=== PATIENT | male | born 1975 | race Caucasian/White ===

== ENCOUNTER 2016-08-03 08:47 | Day surgery (SDC) | payer OTHER ==
[2016-08-03] MEDS ORDERED: LIDOCAINE 1% 5 ML SDV ID PRN (09:08)
[2016-08-03] MEDS ORDERED: LR 1,000 ML IV ONE (09:08)
[2016-08-03] MEDS ORDERED: LIDOCAINE 1% 2 ML INJ ONE (09:14)
[2016-08-03] MEDS ORDERED: fentaNYL 100 MCG/2 ML INJ ONE (09:38)
[2016-08-03] MEDS ORDERED: PROPOFOL/EMULSION 500 MG/50 ML BOTTLE IV ONE (09:39)
--- NOTE | 2016-08-03 11:56 | GPN ---
[f rep st] PROCEDURE NOTE DATE OF PROCEDURE: 08/03/2016 PROCEDURE: Esophagogastroduodenoscopy with biopsy, endoscopic ultrasound. INDICATION: The patient is a 41-year-old male who presents for evaluation of idiopathic pancreatitis as well as increasing mid epigastric abdominal pain. He presents for further evaluation. CONSENT: Risks, benefits, and alternatives of the procedure were discussed in great detail with the patient. Risk of infection, bleeding, perforation, sedation, and pancreatitis were discussed. All questions were answered. Informed consent was obtained. MEDICATIONS: Propofol. Please see Anesthesiology record for details ESTIMATED BLOOD LOSS: Insignificant. ESOPHAGOGASTRODUODENOSCOPY EXAMINATION: The Olympus upper endoscope was introduced into the mouth and advanced to the esophagus. The proximal, mid, and distal esophagus were normal in appearance. The stomach was entered and closely examined, including retroflexed view of angularis, cardia and fundus. The patient was noted to have a small hiatal hernia. The mucosa in the antrum and body of the stomach was erythematous in a patchy distribution. Biopsies were taken. The duodenal bulb and second portion of the duodenum were normal in appearance. Biopsies taken to rule out celiac disease. ENDOSCOPIC ULTRASOUND EXAMINATION: The Olympus linear echoendoscope was inserted in the mouth to second portion of the duodenum. The pancreas was carefully examined from the uncinate process to the tail where the spleen was seen. The pancreatic duct was not dilated. No dilated side branches were noted. Hyperechoic foci were noted throughout the body. The common bile duct was seen. It measured approximately 4 mm without stone stricture or stenosis. A fluid collection was seen around the head of the pancreas. It measured approximately 3 cm. No obvious liver lesion was noted. The gallbladder had significant debris. No stones were noted. IMPRESSION: 1. Debris in the gallbladder. 2. Gastritis, status post biopsy. 3. Small hiatal hernia. 4. Fluid collection around the head of the pancreas. RECOMMENDATIONS: 1. Follow up in the office in 2 weeks. 2. Consider cholecystectomy. 3. Await biopsy results. /[id number]/MODL MTDD
== END 2016-08-03 11:25 | disposition home or self-care (01) ==
LOC: FSGY 08:47
PROVIDERS: ATTEND Internal Medicine Gastroenterology
PROC: 0DB98ZX Excision of Duodenum, Via Natural or Artificial Opening Endoscopic, Diagnostic (ICD-10-PCS; principal; 2016-08-03 10:15)
PROC: 0DB68ZX Excision of Stomach, Via Natural or Artificial Opening Endoscopic, Diagnostic (ICD-10-PCS; principal; 2016-08-03 10:15)
PROC: 0FJD8ZZ Inspection of Pancreatic Duct, Via Natural or Artificial Opening Endoscopic (ICD-10-PCS; principal; 2016-08-03 10:15)
DX: K44.9 Diaphragmatic hernia without obstruction or gangrene (principal); K29.50 Unspecified chronic gastritis without bleeding; K85.90 Acute pancreatitis without necrosis or infection, unspecified; F10.20 Alcohol dependence, uncomplicated; F41.8 Other specified anxiety disorders; I10 Essential (primary) hypertension; F17.210 Nicotine dependence, cigarettes, uncomplicated
CPT/HCPCS: J2704; J3010

== ENCOUNTER → 2016-11-21 | Outpatient (CLI) | payer OTHER | LOC: FIMAGING 17:59 | PROVIDERS: ATTEND Internal Medicine | DX: R10.9 Unspecified abdominal pain (principal); J18.9 Pneumonia, unspecified organism ==

== ENCOUNTER 2016-12-27 07:00 | Day surgery (SDC) | payer OTHER ==
--- NOTE | 2016-12-19 08:26 | GHP ---
[f rep st] PREOP HISTORY AND PHYSICAL DATE OF ADMISSION: 12/27/2016 HISTORY OF PRESENT ILLNESS: The patient is a 41-year-old male with a history of alcohol abuse, who is now sober in an outpatient program, who presents after 3 episodes of alcoholic pancreatitis requi [facility] hospitalization in March and April 2016 and June 2016. The most recent episode requi red an ICU stay. He has been sober since that last episode. He does still smoke cigarettes. He archuleta s no abdominal surgical history. EGD with EUS on 08/03/[address] 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 He has been referred here for laparoscopic cholecystectomy. PAST MEDICAL HISTORY: Includes alcoholism, anxiety, hypertension, tobacco dependence. PAST SURGICAL HISTORY: Denies. MEDICATIONS: Acamprosate, amlodipine, citalopram, gabapentin, potassium chloride, Protonix, topiram ate. ALLERGIES: No known drug allergies. SOCIAL HISTORY: History of alcohol abuse, now sober in outpatient program. Also tobacco use. REVIEW OF SYSTEMS: A 10-point review of systems negative aside from that in the HPI. PHYSICAL EXAMINATION: GENERAL: Reveals a 41-year-old male, alert and oriented x3, and in no acute distress. HEENT: Normocephalic, atraumatic. No pallor. [place] complexion. No jaundice. Mucous me mbranes moist. CHEST: Clear to auscultation bilaterally. CARDIAC: Regular rate and rhythm. ABDO MEN: Soft, nontender. No rebound, no guarding. Negative Pleitez sign. EXTREMITIES: Warm, well pe rfused without edema. SKIN: Warm and dry. PSYCH: Normal mood and affect. IMPRESSION: This is a 41-year-old male, now sober with 3 episodes of severe alcoholic pancreatitis. PLAN: Plan is to pursue laparoscopic cholecystectomy. Prior episodes of pancreatitis are consisten t with alcohol abuse. He is sober now and understands the importance of this for his health. He do es have sludge in his gallbladder, and it is reasonable to remove it given his history and desire to avoid further potentially more complicated episodes of pancreatitis. Risks and options have been d iscussed including but not limited to bleeding, infection, nerve injury; retained stones, bile leak, need for ERCP, open procedure, recurrent symptoms, and other problems, and he requests to proceed. The patient is seen by both Inez Phelps and Dr. Leandro Azar. /[id number]/MODL
[~2016-12-27 07:00] MED LIST: cefOXitin SODIUM 2 GM in D5W 100 ML IV ONE
--- NOTE | 2016-12-27 07:32 | PDHPUP ---
History & Physical Update H&P update statement: This history and physical update is based on an assessment of the patient which was completed after admission or registration (within 24 hours), but prior to the surgery/procedure. H&P update: H&P reviewed & patient examined, no change in patient's condition since H&P completed
[2016-12-27] MEDS ORDERED: BUPIVACAINE 0.5% 30 ML SDV ONE (08:33)
[2016-12-27] MEDS ORDERED: HEPARIN 1000 UNIT/1 ML MDV ONE (08:33)
--- NOTE | 2016-12-27 08:34 | PDANEPAE ---
ANE Past Medical History - Cardiovascular History Hx Hypertension: Yes Hx Arrhythmias: No Hx Chest Pain: No Hx Coronary Artery / Peripheral Vascular Disease: No Hx CHF / Valvular Disease: No Hx Palpitations: No Cardiovascular History Comment: pcp monitors bp meds - Pulmonary History Hx COPD: No Hx Asthma/Reactive Airway Disease: No Hx Recent Upper Respiratory Infection: No Hx Oxygen in Use at Home: No Hx Sleep Apnea: No Sleep Apnea Screening Result - Last Documented: Negative - Neurologic History Hx Cerebrovascular Accident: No Hx Seizures: No Hx Dementia: No - Endocrine History Hx Diabetes: No - Renal History Hx Renal Disorders: No - Liver History Hx Hepatic Disorders: Yes Hepatic History Comment: hx of pancreatitis - Neurological & Psychiatric Hx Hx Neurological and Psychiatric Disorders: No - Cancer History Hx Cancer: No - Congenital Disorder History Hx Congenital Disorders: No - GI History GERD: mild Hx Gastrointestinal Disorders: Yes Gastrointestinal History Comment: DIARRHEA. DECREASED APPETITE - Other Health History Other Health History: wears glasses - Chronic Pain History Chronic Pain: Yes (pancreatitis/ abd pain) - Surgical History Prior Surgeries: 08/03/16 EGD/ EUS with Raju. AUNDREA Howard X3 ANE Review of Systems - Exercise capacity Exercise capacity: >=4 METS METS (RN): 4 METS ANE Patient History - Allergies Allergies/Adverse Reactions: No Known Allergies Allergy (Verified 12/25/16 12:52) - Home Medications Home medications: home medication list seen and reviewed Home Medications: Amlodipine Besylate 08/01/16 [Last Taken 08/03/16 08:25] Citalopram 08/01/16 [Last Taken 08/03/16 08:25] Pantoprazole Sodium 08/01/16 [Last Taken 12/27/16 05:00] Herbals/Supplements -Info Only 12/25/16 [Last Taken 12/25/16] - NPO status NPO Status: no food or drink >8 hours NPO Since - Liquids (Date): 12/26/16 NPO Since - Liquids (Time): 14:00 NPO Since - Solids (Date): 12/27/16 NPO Since - Solids (Time): 05:00 - Anes Hx Anes Hx: no prior problems - Smoking Hx Smoking Status: Current every day smoker - Alcohol Use Alcohol Use: Sober - Family Anes Hx Family Anes Hx: none Family Hx Anesthesia Complications: none ANE Labs/Vital Signs - Vital Signs Blood Pressure: 142/97 Heart Rate: 72 Respiratory Rate: 16 O2 Sat (%): 95 Height: 177.8 cm Weight: 96.615 kg ANE Physical Exam - Airway Neck exam: FROM Mallampati Score: Class 3 Mouth exam: normal dental/mouth exam - Pulmonary Pulmonary: no respiratory distress - Cardiovascular Cardiovascular: regular rate and rhythym - ASA Status ASA Status: II
[2016-12-27] MEDS ORDERED: ceFAZolin 1 GM/5 ML SYR ONE (08:37)
[2016-12-27] MEDS ORDERED: PROPOFOL 200 MG/20 ML VIAL ONE (08:39)
[2016-12-27] MEDS ORDERED: fentaNYL 100 MCG/2 ML INJ ONE ×5 (08:39→10:59)
[2016-12-27] MEDS ORDERED: ROCURONIUM 50 MG/5 ML VIAL ONE ×2 (08:43→09:13)
[2016-12-27] MEDS ORDERED: LIDOCAINE 2% 5 ML SDV ONE (08:43)
[2016-12-27] MEDS ORDERED: OXYCODONE/APAP 5/325 TAB PO PRN (09:19)
[2016-12-27] MEDS ORDERED: LR 500 ML IV PRN (09:19)
[2016-12-27] MEDS ORDERED: ONDANSETRON 4 MG/2 ML VIAL IVP PRN (09:19)
[2016-12-27] MEDS ORDERED: NALOXONE HCL 0.4 MG/ML INJ IVP PRN (09:19)
[2016-12-27] MEDS ORDERED: SUGAMMADEX SODIUM 200 MG/2 ML VIAL IVP ONE (09:27)
[2016-12-27] MEDS ORDERED: ONDANSETRON 4 MG/2 ML VIAL ONE (09:27)
--- NOTE | 2016-12-27 10:10 | POSTOPPROG ---
Post Op Note Date of Operation: 12/27/16 Surgeon: Leandro Azar Cutting Inspector: Mandy Avila Anesthesiologist: Eliseo Anesthesia: GET(General Endotracheal) Pre-op Diagnosis: Cholelisthesis Post-op Diagnosis: Same Indication: RUQ pain, recurrent pancreatitis Procedure: Laproscopic cholecystectomy, liver biopsy Inf/Abcess present in the surg proc area at time of surgery?: No Depth: Organ Space EBL: Minimal Specimen(s): gallbladder Liver biopsy
[2016-12-27] MEDS: fentaNYL 100 MCG/2 ML INJ IVP PRN ×4 (10:31→11:05)
[2016-12-27] MEDS: HYDROmorphONE/DILAUDID 1 MG/ML SYR IVP PRN ×3 (10:49→11:09)
[2016-12-27] MEDS ORDERED: HYDROmorphONE/DILAUDID 1 MG/ML SYR ONE ×2 (10:49→11:07)
[2016-12-27] MEDS ORDERED: OXYCODONE/APAP 5/325 TAB ONE (11:30)
--- NOTE | 2016-12-27 11:34 | POSTANESTH ---
Post Anesthetic Evaluation Respiratory Status: Normal, Stable Level of Consciousness/Mental Status: Can Participate in Eval Pain Control: Adequate, Prn Tx Ordered Nausea/Vomiting Control: Adequate, Prn Tx Ordered Complications Possibly Related to Anesthesia: None Noted
[2016-12-27 11:45] VITALS: TEMP 97.9
[2016-12-27 11:54] VITALS: BP 145/86; PULSE 99; RESP 13; O2SAT 92
--- NOTE | 2017-01-01 07:01 | GOP ---
[f rep st] OPERATIVE REPORT DATE OF OPERATION: SURGEON: Leandro Azar MD APPLICATION ADMINISTRATOR: Mandy Avila PA-C ANESTHESIA: General endotracheal anesthesia. PREOPERATIVE DIAGNOSIS: Recurrent pancreatitis. POSTOPERATIVE DIAGNOSIS: Recurrent pancreatitis. PROCEDURE PERFORMED: 1. Laparoscopic cholecystectomy. 2. Wedge liver biopsy. FINDINGS: Patient was found to have a mildly inflamed gallbladder with adhesions to the gallbladder . He also had a fatty liver. ESTIMATED BLOOD LOSS: Negligible. DESCRIPTION OF PROCEDURE: Patient was taken to the operating room, where he received satisfactory g eneral endotracheal anesthesia. He was placed in supine position, prepped and draped in usual steri le fashion. Infraumbilical incision was made, Veress needle was inserted, pneumoperitoneum was esta blished. Trocar was introduced. Laparoscope was introduced. Good visualization was obtained. Thr ee other trocars were placed in the upper abdomen under direct vision. The gallbladder was elevated up, adhesions were taken down until the entire gallbladder could be exposed. Cystic duct and cysti c artery were dissected free. They were both multiply hemoclipped and divided. A good clear view h ad been obtained. They were divided with care to avoid injury to the common bile duct. Peritoneum of the gallbladder was incised and the gallbladder was dissected free from the bed and hepatic fossa , and extracted through the upper midline port site. Hemostasis was obtained. Attention was turned to the liver. A wedge biopsy was taken of the right lobe of the liver. Hemostasis was obtained wi th electrocautery. A specimen was removed and sent to Pathology. Trocars were removed under direct vision. Trocar sites were closed with 0 Vicryl for the fascia, 4-0 Monocryl subcuticular stitch fo r the skin. All layers were infiltrated with 0.5% Marcaine. Blood loss was negligible. He was david en to the recovery room in good condition. /[id number]/MODL
== END 2016-12-27 12:11 | disposition home or self-care (01) ==
LOC: FSGY 07:00
PROVIDERS: ATTEND Surgery
PROC: 0FB14ZX Excision of Right Lobe Liver, Percutaneous Endoscopic Approach, Diagnostic (ICD-10-PCS; principal; 2016-12-27 08:30)
PROC: 0FT44ZZ Resection of Gallbladder, Percutaneous Endoscopic Approach (ICD-10-PCS; principal; 2016-12-27 08:30)
DX: K86.1 Other chronic pancreatitis (principal); K80.20 Calculus of gallbladder without cholecystitis without obstruction; R10.11 Right upper quadrant pain; K76.0 Fatty (change of) liver, not elsewhere classified; F10.21 Alcohol dependence, in remission; I10 Essential (primary) hypertension; F17.200 Nicotine dependence, unspecified, uncomplicated
CPT/HCPCS: J0694; J1170; J2405; J2704; J3010

== ENCOUNTER → 2017-01-31 | Outpatient (CLI) | payer OTHER | LOC: CIMAGING 13:27 | PROVIDERS: ATTEND Internal Medicine | DX: R07.9 Chest pain, unspecified (principal); R10.9 Unspecified abdominal pain; R93.8 Abnormal findings on diagnostic imaging of other specified body structures | CPT/HCPCS: 71020-PO ==

== ENCOUNTER 2017-03-24 08:32 | Inpatient (IN) | payer OTHER ==
--- NOTE | 2017-03-24 08:48 | EDPHY ---
General Narrative: CHIEF COMPLAINT: Chest pain HISTORY OF PRESENT ILLNESS: Patient complains of chest pain that started Saturday night. This was mild-to- moderate at 1st now moderate to severe. It is primarily left-sided. It is described as unbearable. Unable to characterize it otherwise. It does come and go but never fully resolved. It has been there for nearly a day at this time. Some shortness of breath. Some tingling of the hands started this morning. Pain does radiate into the arms. Minimal epigastric pain. Some nausea and vomiting this morning. No trauma or injury. No neck pain. No headache. No other associated complaints or modifying factors. REVIEW OF SYSTEMS: Ten systems reviewed and are negative unless otherwise noted in the HPI PCP: Dr. Carter SPECIALISTS: None PAST MEDICAL HISTORY: Hypertension, pancreatitis, depression, anxiety, alcohol dependence PAST SURGICAL HISTORY: Cholecystectomy SOCIAL HISTORY: Smoker. Every other day alcohol intake. No illicit substance use. Works at a [employer] in [place] FAMILY HISTORY: Noncontributory EXAMINATION General Appearance: Alert, no distress Head: normocephalic, atraumatic Eyes: Pupils equal and round, no conjunctival pallor or injection ENT, Mouth: Mucous membranes moist. Airway patent Neck: Normal inspection, supple, non-tender Respiratory: Lungs are clear to auscultation. No wheezing, rhonchi or crackles Cardiovascular: Tachycardic rate. Regular rhythm. No murmur. Pulses intact distally Gastrointestinal: Abdomen is soft and nondistended. Mild tenderness in the epigastrium. No guarding. No tympany. No rigidity. Neurological: GCS 15. A&O, nonfocal, normal gait Skin: Warm and dry, no rash. No petechiae purpura. Extremities: Nontender, no pedal edema Psychiatric: Mood and affect normal DIFFERENTIAL DIAGNOSES: Including but not limited to ACS, anxiety, pneumonia, PE, pleurisy, pericarditis MDM: 8:50 a.m. Chest pain that started on Saturday. This has been mostly constant with occasional wax and wane of severity. Does have some shortness of breath. Some tingling of the hands. He has no neck pain. No trauma or injury to the head or neck. Neuro exam is normal. EKG is sinus tachycardia without ischemia. Laboratory studies and chest x-ray pending. No previous cardiac workup. 9:40 a.m. D-dimer is elevated, thus I have ordered CT angio of the chest rule out PE. Glucose is slightly elevated. His lipase is also slightly elevated. He does admit to alcohol intake last night and this morning. I have re-evaluated and informed him of this. He is in no acute distress with mild tachycardia. ASA and IV fluid ordered as well. 10:30 a.m. Notified by radiologist Dr. Rhodes. CT scan reveals no PE. There is question of some abnormality of the left anterior descending artery. There is also some question of abnormality on the abdomen portion of the scan as documented. Recommend further imaging of the abdomen. I will discuss with client care consultant regarding the possible LAD lesion. I will discuss with the hospitalist as well for admission. 11:08 a.m. Case discussed with client care consultant Dr. Martin. He will provide consultation. We discussed the patient's history, physical exam, EKG and CT findings. Proceed with admission to the hospitalist. We will page them again. 11:25 a.m. Patient has been evaluated by client care consultant. Ripley to be related to pancreatitis and noncardiac in nature. Please see his note for further details. 11:30 a.m. Case discussed with hospitalist. The patient be admitted to Dr. Ulloa. He is admitted in stable condition for pancreatitis and further cardiac workup. Abdominal exam remains benign with some epigastric tenderness. EKG interpretation: Dr. Kush Gan Sinus tachycardia. No acute ischemia - Diagnostics Imaging Results: Imaging Impressions Chest X-Ray 03/24/17 08:51 Impression: Possible left ventricular hypertrophy. Otherwise negative. Is this patient hypertensive? Chest/Thorax CTA 03/24/17 09:38 Impression: 1. No pulmonary embolic disease. 2. Suspicious for LAD coronary artery disease. 3. Abnormal masses/adenopathy in the upper abdomen, incompletely evaluated. Recommend dedicated CT with IV contrast of the abdomen and pelvis. Is there any known history of malignancy? Results called and discussed with Benson Ruiz, at 03/24/2017 10:27 General information for patients regarding this examination can be found at [email or web address]. If you have questions or comments about this report, please contact me at (hospital) or [phone] (cell). - History Smoking Status: Current every day smoker - Objective Vital Signs: Initial Vital Signs Temperature (C) 98.6 F 03/24/17 08:36 Heart Rate 104 H 03/24/17 08:36 Respiratory Rate 18 03/24/17 08:36 Blood Pressure 154/98 H 03/24/17 08:36 O2 Sat (%) 95 03/24/17 08:36 O2 Delivery Mode Room Air Allergies/Adverse Reactions: No Known Allergies Allergy (Verified 12/25/16 12:52) Home Medications: Medication Instructions Recorded Citalopram Hydrobromide [Celexa] 40 mg PO DAILY #0 08/01/16 Pantoprazole Sodium [Protonix 40mg 40 mg PO DAILY #0 08/01/16 (*)] amLODIPine BESYLATE [Norvasc 5 mg 5 mg PO DAILY #0 08/01/16 (*)] Multivitamins [Multivitamin (*)] 1 each PO DAILY 03/24/17 Laboratory Results: Laboratory Results 03/24/17 08:55 03/24/17 08:55 03/24/17 03/24/17 03/24/17 08:55 08:55 08:55 WBC RBC Hgb Hct MCV MCH MCHC RDW Plt Count MPV Neut % (Auto) Lymph % (Auto) [place] % (Auto) Eos % (Auto) Baso % (Auto) Nucleat RBC Rel Count Absolute Neuts (auto) Absolute Lymphs (auto) Absolute Monos (auto) Absolute Eos (auto) Absolute Basos (auto) Absolute Nucleated RBC Immature Gran % Immature Gran # PT 14.4 SEC SEC (12.0-15.0) INR 1.13 (0.83-1.16) APTT 25.8 SEC SEC (23.0-38.0) D-Dimer 2.83 ug/mLFEU H ug/mLFEU (0.00-0.50) Sodium 135 mEq/L mEq/L (134-144) Potassium 4.3 mEq/L mEq/L (3.5-5.2) Chloride 97 mEq/L mEq/L (97-110) Carbon Dioxide 18 mEq/l L mEq/l (22-31) Anion Gap 20 mEq/L H mEq/L (8-16) BUN 9 mg/dL mg/dL (7-23) Creatinine 0.7 mg/dL mg/dL (0.7-1.3) Estimated GFR > 60 Glucose 296 mg/dL H mg/dL (70-100) Calcium 8.8 mg/dL mg/dL (8.5-10.4) Troponin I < 0.012 ng/mL ng/mL (0.000-0.034) NT-Pro-B Natriuret Pep < 11 pg/mL pg/mL (0-125) Lipase 359 IU/L H IU/L (23-300) Ethyl Alcohol 60 mg/dL H mg/dL (0-10) 03/24/17 08:55 WBC 10.59 10^3/uL H 10^3/uL (3.80-9.50) RBC 4.97 10^6/uL 10^6/uL (4.40-6.38) Hgb 13.9 g/dL g/dL (13.7-17.5) Hct 41.9 % % (40.0-51.0) MCV 84.3 fL fL (81.5-99.8) MCH 28.0 pg pg (27.9-34.1) MCHC 33.2 g/dL g/dL (32.4-36.7) RDW 15.4 % H % (11.5-15.2) Plt Count 226 10^3/uL 10^3/uL (150-400) MPV 9.9 fL fL (8.7-11.7) Neut % (Auto) 73.9 % % (39.3-74.2) Lymph % (Auto) 16.3 % % (15.0-45.0) [place] % (Auto) 7.7 % % (4.5-13.0) Eos % (Auto) 1.1 % % (0.6-7.6) Baso % (Auto) 0.6 % % (0.3-1.7) Nucleat RBC Rel Count 0.0 % % (0.0-0.2) Absolute Neuts (auto) 7.82 10^3/uL H 10^3/uL (1.70-6.50) Absolute Lymphs (auto) 1.73 10^3/uL 10^3/uL (1.00-3.00) Absolute Monos (auto) 0.82 10^3/uL H 10^3/uL (0.30-0.80) Absolute Eos (auto) 0.12 10^3/uL 10^3/uL (0.03-0.40) Absolute Basos (auto) 0.06 10^3/uL 10^3/uL (0.02-0.10) Absolute Nucleated RBC 0.00 10^3/uL 10^3/uL (0-0.01) Immature Gran % 0.4 % % (0.0-1.1) Immature Gran # 0.04 10^3/uL 10^3/uL (0.00-0.10) PT INR APTT D-Dimer Sodium Potassium Chloride Carbon Dioxide Anion Gap BUN Creatinine Estimated GFR Glucose Calcium Troponin I NT-Pro-B Natriuret Pep Lipase Ethyl Alcohol Medications Given: Hydromorphone/Sodium Chloride (Hydromorphone) 0.2 - 0.4 mg IVP Q2HRS PRN PRN Reason: Pain, Severe Unable to Take PO Stop: 04/03/17 13:30 Last Admin: 03/24/17 16:24 Dose: 0.4 mg Sodium Chloride (Ns) 1,000 mls @ 125 mls/hr IV CONT ABIEL Stop: 09/20/17 13:29 Last Admin: 03/24/17 14:17 Dose: 1,000 mls Discontinued Medications Aspirin (Aspirin) 324 mg PO EDNOW ONE Stop: 03/24/17 09:42 Last Admin: 03/24/17 10:13 Dose: 324 mg Sodium Chloride (Ns) 1,000 mls @ 0 mls/hr IV EDNOW ONE; Wide Open PRN Reason: Protocol Stop: 03/24/17 09:40 Last Admin: 03/24/17 10:13 Dose: 1,000 mls Departure - Departure Disposition: [facility] Inpatient Acute Clinical Impression: Acute chest pain Pancreatitis Qualifiers: Chronicity: acute Pancreatitis type: alcohol induced Acute pancreatitis complication: unspecified Qualified Code(s): K85.20 - Alcohol induced acute pancreatitis without necrosis or infection Condition: Good
--- NOTE | 2017-03-24 08:48 | EDPHY ---
General Narrative: CHIEF COMPLAINT: Chest pain HISTORY OF PRESENT ILLNESS: Patient complains of chest pain that started Saturday night. This was mild-to- moderate at 1st now moderate to severe. It is primarily left-sided. It is described as unbearable. Unable to characterize it otherwise. It does come and go but never fully resolved. It has been there for nearly a day at this time. Some shortness of breath. Some tingling of the hands started this morning. Pain does radiate into the arms. Minimal epigastric pain. Some nausea and vomiting this morning. No trauma or injury. No neck pain. No headache. No other associated complaints or modifying factors. REVIEW OF SYSTEMS: Ten systems reviewed and are negative unless otherwise noted in the HPI PCP: Dr. Carter SPECIALISTS: None PAST MEDICAL HISTORY: Hypertension, pancreatitis, depression, anxiety, alcohol dependence PAST SURGICAL HISTORY: Cholecystectomy SOCIAL HISTORY: Smoker. Every other day alcohol intake. No illicit substance use. Works at a [employer] in [place] FAMILY HISTORY: Noncontributory EXAMINATION General Appearance: Alert, no distress Head: normocephalic, atraumatic Eyes: Pupils equal and round, no conjunctival pallor or injection ENT, Mouth: Mucous membranes moist. Airway patent Neck: Normal inspection, supple, non-tender Respiratory: Lungs are clear to auscultation. No wheezing, rhonchi or crackles Cardiovascular: Tachycardic rate. Regular rhythm. No murmur. Pulses intact distally Gastrointestinal: Abdomen is soft and nondistended. Mild tenderness in the epigastrium. No guarding. No tympany. No rigidity. Neurological: GCS 15. A&O, nonfocal, normal gait Skin: Warm and dry, no rash. No petechiae purpura. Extremities: Nontender, no pedal edema Psychiatric: Mood and affect normal DIFFERENTIAL DIAGNOSES: Including but not limited to ACS, anxiety, pneumonia, PE, pleurisy, pericarditis MDM: 8:50 a.m. Chest pain that started on Saturday. This has been mostly constant with occasional wax and wane of severity. Does have some shortness of breath. Some tingling of the hands. He has no neck pain. No trauma or injury to the head or neck. Neuro exam is normal. EKG is sinus tachycardia without ischemia. Laboratory studies and chest x-ray pending. No previous cardiac workup. 9:40 a.m. D-dimer is elevated, thus I have ordered CT angio of the chest rule out PE. Glucose is slightly elevated. His lipase is also slightly elevated. He does admit to alcohol intake last night and this morning. I have re-evaluated and informed him of this. He is in no acute distress with mild tachycardia. ASA and IV fluid ordered as well. 10:30 a.m. Notified by radiologist Dr. Rhodes. CT scan reveals no PE. There is question of some abnormality of the left anterior descending artery. There is also some question of abnormality on the abdomen portion of the scan as documented. Recommend further imaging of the abdomen. I will discuss with supervisor aluminum fabrication regarding the possible LAD lesion. I will discuss with the hospitalist as well for admission. 11:08 a.m. Case discussed with supervisor aluminum fabrication Dr. Martin. He will provide consultation. We discussed the patient's history, physical exam, EKG and CT findings. Proceed with admission to the hospitalist. We will page them again. 11:25 a.m. Patient has been evaluated by supervisor aluminum fabrication. [place] to be related to pancreatitis and noncardiac in nature. Please see his note for further details. 11:30 a.m. Case discussed with hospitalist. The patient be admitted to Dr. Ulloa. He is admitted in stable condition for pancreatitis and further cardiac workup. Abdominal exam remains benign with some epigastric tenderness. EKG interpretation: Dr. Kush Gan Sinus tachycardia. No acute ischemia - Diagnostics Imaging Results: Imaging Impressions Chest X-Ray 03/24/17 08:51 Impression: Possible left ventricular hypertrophy. Otherwise negative. Is this patient hypertensive? Chest/Thorax CTA 03/24/17 09:38 Impression: 1. No pulmonary embolic disease. 2. Suspicious for LAD coronary artery disease. 3. Abnormal masses/adenopathy in the upper abdomen, incompletely evaluated. Recommend dedicated CT with IV contrast of the abdomen and pelvis. Is there any known history of malignancy? Results called and discussed with Benson Ruiz, at 03/24/2017 10:27 General information for patients regarding this examination can be found at [email or web address]. If you have questions or comments about this report, please contact me at [phone] (hospital) or [phone] (cell). - History Smoking Status: Current every day smoker - Objective Vital Signs: Initial Vital Signs Temperature (C) 98.6 F 03/24/17 08:36 Heart Rate 104 H 03/24/17 08:36 Respiratory Rate 18 03/24/17 08:36 Blood Pressure 154/98 H 03/24/17 08:36 O2 Sat (%) 95 03/24/17 08:36 O2 Delivery Mode Room Air Allergies/Adverse Reactions: No Known Allergies Allergy (Verified 12/25/16 12:52) Home Medications: Medication Instructions Recorded Citalopram Hydrobromide [Celexa] 40 mg PO DAILY #0 08/01/16 Pantoprazole Sodium [Protonix 40mg 40 mg PO DAILY #0 08/01/16 (*)] amLODIPine BESYLATE [Norvasc 5 mg 5 mg PO DAILY #0 08/01/16 (*)] Multivitamins [Multivitamin (*)] 1 each PO DAILY 03/24/17 Laboratory Results: Laboratory Results 03/24/17 08:55 03/24/17 08:55 03/24/17 03/24/17 03/24/17 08:55 08:55 08:55 WBC RBC Hgb Hct MCV MCH MCHC RDW Plt Count MPV Neut % (Auto) Lymph % (Auto) Long % (Auto) Eos % (Auto) Baso % (Auto) Nucleat RBC Rel Count Absolute Neuts (auto) Absolute Lymphs (auto) Absolute Monos (auto) Absolute Eos (auto) Absolute Basos (auto) Absolute Nucleated RBC Immature Gran % Immature Gran # PT 14.4 SEC SEC (12.0-15.0) INR 1.13 (0.83-1.16) APTT 25.8 SEC SEC (23.0-38.0) D-Dimer 2.83 ug/mLFEU H ug/mLFEU (0.00-0.50) Sodium 135 mEq/L mEq/L (134-144) Potassium 4.3 mEq/L mEq/L (3.5-5.2) Chloride 97 mEq/L mEq/L (97-110) Carbon Dioxide 18 mEq/l L mEq/l (22-31) Anion Gap 20 mEq/L H mEq/L (8-16) BUN 9 mg/dL mg/dL (7-23) Creatinine 0.7 mg/dL mg/dL (0.7-1.3) Estimated GFR > 60 Glucose 296 mg/dL H mg/dL (70-100) Calcium 8.8 mg/dL mg/dL (8.5-10.4) Troponin I < 0.012 ng/mL ng/mL (0.000-0.034) NT-Pro-B Natriuret Pep < 11 pg/mL pg/mL (0-125) Lipase 359 IU/L H IU/L (23-300) Ethyl Alcohol 60 mg/dL H mg/dL (0-10) 03/24/17 08:55 WBC 10.59 10^3/uL H 10^3/uL (3.80-9.50) RBC 4.97 10^6/uL 10^6/uL (4.40-6.38) Hgb 13.9 g/dL g/dL (13.7-17.5) Hct 41.9 % % (40.0-51.0) MCV 84.3 fL fL (81.5-99.8) MCH 28.0 pg pg (27.9-34.1) MCHC 33.2 g/dL g/dL (32.4-36.7) RDW 15.4 % H % (11.5-15.2) Plt Count 226 10^3/uL 10^3/uL (150-400) MPV 9.9 fL fL (8.7-11.7) Neut % (Auto) 73.9 % % (39.3-74.2) Lymph % (Auto) 16.3 % % (15.0-45.0) Long % (Auto) 7.7 % % (4.5-13.0) Eos % (Auto) 1.1 % % (0.6-7.6) Baso % (Auto) 0.6 % % (0.3-1.7) Nucleat RBC Rel Count 0.0 % % (0.0-0.2) Absolute Neuts (auto) 7.82 10^3/uL H 10^3/uL (1.70-6.50) Absolute Lymphs (auto) 1.73 10^3/uL 10^3/uL (1.00-3.00) Absolute Monos (auto) 0.82 10^3/uL H 10^3/uL (0.30-0.80) Absolute Eos (auto) 0.12 10^3/uL 10^3/uL (0.03-0.40) Absolute Basos (auto) 0.06 10^3/uL 10^3/uL (0.02-0.10) Absolute Nucleated RBC 0.00 10^3/uL 10^3/uL (0-0.01) Immature Gran % 0.4 % % (0.0-1.1) Immature Gran # 0.04 10^3/uL 10^3/uL (0.00-0.10) PT INR APTT D-Dimer Sodium Potassium Chloride Carbon Dioxide Anion Gap BUN Creatinine Estimated GFR Glucose Calcium Troponin I NT-Pro-B Natriuret Pep Lipase Ethyl Alcohol Medications Given: Hydromorphone/Sodium Chloride (Hydromorphone) 0.2 - 0.4 mg IVP Q2HRS PRN PRN Reason: Pain, Severe Unable to Take PO Stop: 04/03/17 13:30 Last Admin: 03/24/17 16:24 Dose: 0.4 mg Sodium Chloride (Ns) 1,000 mls @ 125 mls/hr IV CONT ABIEL Stop: 09/20/17 13:29 Last Admin: 03/24/17 14:17 Dose: 1,000 mls Discontinued Medications Aspirin (Aspirin) 324 mg PO EDNOW ONE Stop: 03/24/17 09:42 Last Admin: 03/24/17 10:13 Dose: 324 mg Sodium Chloride (Ns) 1,000 mls @ 0 mls/hr IV EDNOW ONE; Wide Open PRN Reason: Protocol Stop: 03/24/17 09:40 Last Admin: 03/24/17 10:13 Dose: 1,000 mls Departure - Departure Disposition: [facility] Inpatient Acute Clinical Impression: Acute chest pain Pancreatitis Qualifiers: Chronicity: acute Pancreatitis type: alcohol induced Acute pancreatitis complication: unspecified Qualified Code(s): K85.20 - Alcohol induced acute pancreatitis without necrosis or infection Condition: Good
--- NOTE | 2017-03-24 08:48 | CPEKG ---
Heart Rate: 100 RR Interval: 600 P-R Interval: 168 QRSD Interval: 86 QT Interval: 344 QTC Interval: 444 P [place]: 53 QRS [place]: -22 T Wave [place]: 50 EKG Severity - OTHERWISE NORMAL ECG - EKG Impression: SINUS TACHYCARDIA EKG Impression: BORDERLINE LEFT AXIS DEVIATION Electronically Signed By: Josue Cosme 01-Apr-2017 12:37:00
[2017-03-24 09:07] LABS: PLATELET COUNT 226 10^3/uL (150-400)
[2017-03-24 09:21] LABS: INR 1.13 (0.83-1.16); PROTIME(PATIENT) 14.4 SEC (12.0-15.0)
[2017-03-24] MEDS ORDERED: NS 1,000 ML IV ONE (09:39)
[2017-03-24] MEDS ORDERED: ASPIRIN 81 MG CHEWABLE TAB PO ONE (09:41)
[2017-03-24] MEDS ORDERED: IOPAMIDOL (ISOVUE 370) 100 ML BTL IV ONE (09:43)
--- NOTE | 2017-03-24 12:15 | GCON ---
[f rep st] CONSULTATION CARDIOLOGY CONSULTATION DATE OF CONSULTATION: 03/24/2017 INDICATION: Chest/abdominal discomfort. REQUESTING PHYSICIAN: Benson Ruiz PA-C. HISTORY OF PRESENT ILLNESS: The patient is 41 years old. He has no known cardiovascular disease. H is major medical condition includes ongoing and active alcoholism. As a result of this, he has had 3 previous episodes of alcoholic pancreatitis. He has been hospitalized in March of 2016, April of 2016 and June of 2016. Most recently, he has required intensive care unit treatment because of his pancreatitis. In November, he underwent a laparoscopic cholecystectomy. He typically will drink anywhere from 6-8 beers a day and up to a pint of Schnapps a day. This has b een his typical habit recently. Over the last 3 days, he has been complaining of epigastric and left upper quadrant pain. There are an occasional association retro xiphoidal and low chest discomfort. The pain is respirophasic in intensity. He has had a little bit of diarrhea with this. He notes no shortness of breath with this. Because of this discomfort, he came to the emergency department toviki y. His initial electrocardiogram demonstrates sinus rhythm at 100 beats per minute. He has no signi ficant ST or T changes. His initial troponin is noted to be normal at less than 0.012. He is having active chest discomfort. His pain has been present for 3 days. PAST MEDICAL HISTORY: 1. Alcoholism as noted above. 2. History of pancreatitis. 3. History of cholecystectomy. 4. Hypertension. 5. Ongoing tobacco abuse. PAST SURGICAL HISTORY: Cholecystectomy. MEDICATIONS: As an outpatient. These are detailed in chart and not repeated here. ALLERGIES: None. SOCIAL HISTORY: He does smoke and abuse alcohol. He notes that he does not do any drugs. He is rel atively sedentary. REVIEW OF SYSTEMS: A full 10 point review of systems was performed, is otherwise negative. PHYSICAL EXAMINATION: VITAL SIGNS: Blood pressure 154/98 with a mean of 116, heart rate of 104, res piratory rate 18, sats 95% on room air. He is afebrile. GENERAL: Healthy white male, in no acute d istress. HEENT: Normocephalic, atraumatic. He has mild scleral icterus. Oropharynx unremarkable. Carotids are 2+ bilaterally. RESPIRATORY: Clear lung bangura bilaterally. Uses no accessory muscle s. Speaks in full sentences. CARDIAC: Precordial inspection unremarkable. PMI is nondisplaced. O n auscultation, has a regular rate and rhythm without murmurs, gallops, or rubs. ABDOMEN: Soft. He has diffuse tenderness in the epigastric region and left upper quadrant region. There is a slight c omponent of rebound. He has normal bowel sounds. No masses are noted. EXTREMITIES: Well perfused. VASCULAR: He has 2+ radial, dorsal pedal, and posterior tibial pulses. DATABASE: His ECG demonstrates normal sinus rhythm. Sodium 135, potassium 4.3, BUN 9, creatinine 0. 7, glucose 296. Troponin less than 0.012. ProBNP less than 11. Lipase 359. Anion gap is 20. INR is 1.13. D-dimer 2.83. White blood cell count elevated at 10.59, hematocrit 41.9, platelet count 22 6,000. Chest and thorax CTA were negative for PE. There is adenopathy noted in the upper abdomen. Comment was made that there is a suspicion for LAD territory coronary disease. IMPRESSION: The patient is 41 years old. He has an extensive alcohol abuse history as defined above with active alcohol use. He additionally has a history of pancreatitis. He has had pancreatitis on 3 occasions, 1 requiring ICU admission. He presents now with epigastric, left upper quadrant discom fort associated with elevated lipase. His glucose is likewise elevated and he has an increased anion gap. His ECG is unremarkable. Troponins negative. At this point, I think that his discomfort is n ot likely related to an underlying cardiovascular process. I think he very likely has recurrent panc reatitis. This was discussed with the emergency department staff. I do not think he requires any fu rther cardiovascular testing in the acute setting. Comment was made from the CT scan that he may hav e left anterior descending territory coronary disease. This can be addressed as an outpatient with a dedicated coronary CTA or possibly a stress echocardiogram. /[id number]/MODL
[2017-03-24] MEDS ORDERED: LORazepam 2 MG/ML INJ IVP PRN (13:24)
[2017-03-24] MEDS ORDERED: chlordiazePOXIDE 25 MG CAP PO PRN (13:24)
[2017-03-24] MEDS ORDERED: HYDROmorphONE/DILAUDID 1 MG/ML INJ IVP PRN (13:27)
[2017-03-24] MEDS ORDERED: PROMETHAZINE HCL 25 MG/ML INJ IVP PRN (13:27)
[2017-03-24] MEDS ORDERED: ONDANSETRON 4 MG/2 ML VIAL IVP PRN (13:27)
[2017-03-24] MEDS: HYDROmorphone HCL/NS/PF 0.4 MG/2 ML SYR IVP PRN ×5 (14:16→23:23)
[2017-03-24] MEDS: NS 1,000 ML IV SCH ×2 (14:17→23:23)
--- NOTE | 2017-03-24 15:01 | GHP ---
[f rep st] HISTORY AND PHYSICAL DATE OF ADMISSION: 03/24/2017 CHIEF COMPLAINT: Abdominal pain. HISTORY: The patient is a 41-year-old male alcoholic, with a history of recurrent alcoholic pancreat itis. Now, presenting with epigastric and left upper quadrant pain. This is similar to his previous pancreatitis pains, however, much more to the left than they have been in the past. He is very unco mfortable, writhing in pain, with currently 10 out of 10 pain that is constant. It does not really r adiate to his back. His last alcoholic beverage was at 7 o'clock this morning. He has had nausea, v omiting, and diarrhea. He denies any recent weight loss. He is feeling short of breath. He feels b oth his hands are tingling, which he has never experienced before, and it scared him. Onset of pain was 2 days ago. PAST MEDICAL HISTORY: 1. Recurrent alcoholic pancreatitis. 2. Hypertension. 3. Fatty liver. PAST SURGICAL HISTORY: Cholecystectomy. MEDICATIONS: Please see the computer record for the full detailed list. ALLERGIES: No known drug allergies. SOCIAL HISTORY: He is a smoker. He drinks 6 to 8 beers per day plus a pint of schnapps. He lives w ith a roommate. 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 REVIEW OF SYSTEMS: Complete review of systems obtained. Review of systems negative for constitution al, HEENT, GI, pulmonary, cardiovascular, , hematology, skin, muscular, endocrine, psych, except fo r positives and negative as in the HPI. FAMILY HISTORY: Reviewed, noncontributory to the presenting complaint. PHYSICAL EXAMINATION: GENERAL: Well-developed, well-nourished male, in no acute distress. VITAL SI GNS: Temperature 37.3, pulse 108, blood pressure 138/97, satting 96% on room air. EYES: Normal con junctivae. Pupils react to light. ENT: Normal ears and nose. Hearing intact. Normal teeth. Orop harynx moist. NECK: Trachea midline. No thyromegaly. CHEST: Normal effort. LUNGS: Clear to aus cultation bilaterally. CARDIOVASCULAR: Regular rhythm. No murmur. No extremity edema. ABDOMEN: Soft. Positive tenderness, epigastric. No hepatosplenomegaly. SKIN: Warm, dry, intact. No rash. MUSCULOSKELETAL: No cyanosis or clubbing. Strength 5/5, upper and lower extremities. NEURO: Cran ial nerves intact. Normal sensation, light touch. PSYCH: Alert and oriented x3. Normal affect. N ormal judgment. Normal memory. LABORATORY DATA: White count 10.59, hematocrit 41.9, platelets 226. Sodium 135, potassium 4.3, chlo ride 97, bicarb 18, BUN 9, creatinine 0.7, glucose 296. BNP is less than 11. Troponins negative. L ipase is 359. D-dimer is 2.83. Alcohol level is 60. DATA: EKG reviewed by me. My personal interpretation was normal sinus rhythm. No ST-T wave changes . CT angiogram of the chest is negative for pulmonary embolus. He does have coronary artery disease evident in his LAD. He has an upper abdominal mass. ASSESSMENT AND PLAN: 1. Upper abdominal mass. The patient needs a dedicated CT scan of the abdomen and pelvis, which I w ill arrange. 2. Questionable alcoholic pancreatitis. His lipase is really only minimally elevated at this time. However, given his history of recurrent pancreatitis episodes in the past, he very well may have a b urned out pancreas and inability to really mount much of a lipase response. He is clearly very uncom fortable, with pain consistent with his usual pancreatitis. We will keep him n.p.o. except for sips and chips. 3. Alcohol withdrawal. We will put him on thiamine and benzodiazepines per Clinical [facility] Assessment protocol. 4. Evidence of coronary artery disease to his left anterior descending on CT angiogram. He will nee d some type of eventual stress testing. Cardiology recommends possible CT angiogram of the coronary arteries versus a stress echo. Will check a lipid panel. 5. Fatty liver. This is due to his alcoholism and obesity. His body mass index is 33. 6. Hypertension. Continue Norvasc. 7. Tobacco dependence. Will place on nicotine patch. CODE STATUS: Full. ADMISSION STATUS: Will admit to inpatient. He looks quite sick on presentation. Anticipate greater than 2 midnights for stabilization. DVT PROPHYLAXIS: He is high risk. Will place him on subcu Lovenox. /[id number]/MODL
--- NOTE | 2017-03-24 15:52 | PDMN ---
Medical Necessity Medical necessity: C/M review: Patient meets IN[place] criteria [place] [facility] Substance-Related Disorders; Acute and persistent alcohol withdrawal, upper abdominal mass of unclear etiology on chest CT angiogram, questionable alcoholic pancreatitis, evidence of CAD to LAD on chest CT angiogram, epigastric and LUQ pain, WBC 10.59, D-Dimer 2.83, Lipase 359, ETOH level 60, Heart rate 104-115 requiring planned 03/24/17 abdomen/pelvis CT, ongoing NPO, IV fluids, IV Thiamine, IV Dilaudid, CIWA protocol, comorbid hypertension, fatty liver. anticipates > 2 MN LOS for ongoing med nec for eval and TX of above.
--- NOTE | 2017-03-24 15:52 | PDMN ---
Medical Necessity Medical necessity: C/M review: Patient meets INPT criteria under [facility] [place] M-595 Substance-Related Disorders; Acute and persistent alcohol withdrawal, upper abdominal mass of unclear etiology on chest CT angiogram, questionable alcoholic pancreatitis, evidence of CAD to LAD on chest CT angiogram, epigastric and LUQ pain, WBC 10.59, D-Dimer 2.83, Lipase 359, ETOH level 60, Heart rate 104-115 requiring planned 03/24/17 abdomen/pelvis CT, ongoing NPO, IV fluids, IV Thiamine, IV Dilaudid, CIWA protocol, comorbid hypertension, fatty liver. anticipates > 2 MN LOS for ongoing med nec for eval and TX of above.
--- NOTE | 2017-03-24 15:52 | PDMN ---
Medical Necessity Medical necessity: C/M review: Patient meets INPT criteria under [facility] [place] M-595 Substance-Related Disorders; Acute and persistent alcohol withdrawal, upper abdominal mass of unclear etiology on chest CT angiogram, questionable alcoholic pancreatitis, evidence of CAD to LAD on chest CT angiogram, epigastric and LUQ pain, WBC 10.59, D-Dimer 2.83, Lipase 359, ETOH level 60, Heart rate 104-115 requiring planned 03/24/17 abdomen/pelvis CT, ongoing NPO, IV fluids, IV Thiamine, IV Dilaudid, CIWA protocol, comorbid hypertension, fatty liver. anticipates > 2 MN LOS for ongoing med nec for eval and TX of above.
--- NOTE | 2017-03-24 16:59 | ASMTCMCOM ---
CM Note CM Note Notes: Pt has been admitted with suspected pancreatitis. Hx alcoholism and pancreatitis. Lives with a roommate. CM will follow for any d/c needs. Date Signed: 03/24/2017 04:59 PM Electronically Signed By:JOSEFINA Silva
[2017-03-24] MEDS ORDERED: IOPAMIDOL (ISOVUE-300) 100 ML BTL ONE (17:43)
[2017-03-24] MEDS: ACETAMINOPHEN 325 MG TAB PO PRN (21:03)
[2017-03-25] MEDS: HYDROmorphone HCL/NS/PF 0.4 MG/2 ML SYR IVP PRN ×8 (02:19→23:09)
[2017-03-25 04:43] LABS: PLATELET COUNT 143 10^3/uL (150-400)
[2017-03-25 04:51] LABS: INR 1.25 (0.83-1.16); PROTIME(PATIENT) 15.7 SEC (12.0-15.0)
[2017-03-25] MEDS: NS 1,000 ML IV SCH ×3 (07:17→23:57)
[2017-03-25] MEDS ORDERED: NON-FORMULARY NEW DRUG (Citalopram Hydrobromide [Celexa] 40 MG) PO SCH (09:00)
[2017-03-25] MEDS: PANTOPRAZOLE SODIUM 40 MG TAB PO SCH (09:22)
[2017-03-25] MEDS: amLODIPine BESYLATE 5 MG TAB PO SCH (09:22)
[2017-03-25] MEDS: CITALOPRAM 20 MG TAB PO SCH (09:22)
[2017-03-25] MEDS: ENOXAPARIN 40 MG/0.4 ML SYR SC SCH (09:26)
[2017-03-25] MEDS: NICOTINE 14 MG/24 HR PATCH TD SCH (09:28)
[2017-03-25] MEDS: THIAMINE HCL 500 MG in NS 100 ML IV SCH (09:51)
--- NOTE | 2017-03-25 11:05 | ASMTCMCOM ---
CM Note CM Note Notes: CM met w/ pt to provide ETOH education and resources. Pts father was in the room. Pt reports that he does not need any resources at this time. CM available for changes or should d/c needs arise. Date Signed: 03/25/2017 11:04 AM Electronically Signed By:TENNILLE Neri
[2017-03-25] MEDS: ACETAMINOPHEN 325 MG TAB PO PRN ×2 (16:42→23:08)
--- NOTE | 2017-03-25 16:46 | HOSPPROG ---
Hospitalist Progress Note Assessment/Plan: * Acute alcohol pancreatitis with extensive pseudocyst -continue NPO -consult GI - d/w Dr. Bob * Etoh abuse -counselled at length regarding need for absolute cessation -no evidence for withdrawal - on thiamine * Hyperglycemia -HgA1c pending * CAD of LAD by CT -outpatient stress test * Fatty liver - due to Etoh and obesity BMI 33 * HTN - norvasc * Tobacco dependence - patch Subjective: Pain is better today Objective: Vital Signs Temp Pulse Resp BP Pulse Ox 37.1 C 85 18 141/83 H 96 03/25/17 15:25 03/25/17 15:25 03/25/17 15:25 03/25/17 15:25 03/25/17 15:25 Laboratory Results 03/25/17 04:27 03/25/17 04:27 03/24/17 03/25/17 03/26/17 05:59 05:59 05:59 Intake Total 2798 Balance 2798 PT 15.7 SEC (12.0-15.0) H 03/25/17 04:27 INR 1.25 (0.83-1.16) H 03/25/17 04:27 Using IV dilaudid for pain CT abd - extensive pancreatic pseudocyst - Physical Exam Constitutional: no apparent distress, appears nourished, not in pain Cardiovascular: regular rate and rhythym, no murmur, rub, or gallop Respiratory: no respiratory distress, no rales or rhonchi, clear to auscultation Gastrointestinal: normoactive bowel sounds, soft, non-tender abdomen, no palpable masses Skin: no rashes or abrasions, no fluctuance, no induration Neurologic: AAOx3, sensation intact bilaterally Psychiatric: interacting appropriately, not anxious, not encephalopathic, thought process linear ICD10 Worksheet Patient Problems: Problems Problem Status Onset Acute chest pain Acute Pancreatitis Acute
[2017-03-26] MEDS: ACETAMINOPHEN 325 MG TAB PO PRN ×4 (04:30→19:56)
[2017-03-26] MEDS: HYDROmorphone HCL/NS/PF 0.4 MG/2 ML SYR IVP PRN (04:30)
[2017-03-26 04:57] LABS: PLATELET COUNT 125 10^3/uL (150-400)
--- NOTE | 2017-03-26 06:33 | SOAPPROG ---
CHRISTINE Progress Note Assessment/Plan: Assessment: Plan: 03/26/17 06:29 GI note See dictated consult for details. Saeid is a 41 year old male with a history of a cholecystectomy who presents with ongoing abdominal pain. Suspected to be from pancreatitis secondary to alcohol in absence of other causes. Lipase normal. I had a long discussion with Mak as well as family about the importance of tobacco and alcohol cessation. Due to elevated alkaline phosphatase, would follow LFTs. Hopefully, can start clear liquid diet soon. Objective: Vital Signs Temp Pulse Resp BP Pulse Ox 37.2 C 89 16 134/89 H 97 03/26/17 04:00 03/26/17 04:00 03/26/17 04:00 03/26/17 04:00 03/26/17 04:00 Laboratory Results 03/26/17 04:17 03/26/17 04:17 03/25/17 03/26/17 03/27/17 05:59 05:59 05:59 Intake Total 2798 1500 Balance 2798 1500 PT 15.7 SEC (12.0-15.0) H 03/25/17 04:27 INR 1.25 (0.83-1.16) H 03/25/17 04:27 ICD10 Worksheet Patient Problems: Problems Problem Status Onset Acute chest pain Acute Pancreatitis Acute
[2017-03-26] MEDS: NS 1,000 ML IV SCH ×2 (07:54→18:47)
[2017-03-26] MEDS: THIAMINE HCL 500 MG in NS 100 ML IV SCH (08:49)
[2017-03-26] MEDS: amLODIPine BESYLATE 5 MG TAB PO SCH (08:52)
[2017-03-26] MEDS: CITALOPRAM 20 MG TAB PO SCH (08:52)
[2017-03-26] MEDS: PANTOPRAZOLE SODIUM 40 MG TAB PO SCH (08:53)
[2017-03-26] MEDS: ENOXAPARIN 40 MG/0.4 ML SYR SC SCH (08:54)
[2017-03-26] MEDS: NICOTINE 14 MG/24 HR PATCH TD SCH (09:13)
[2017-03-26] MEDS: oxyCODONE IR 5 MG TAB PO PRN ×3 (11:02→19:56)
[2017-03-26] MEDS ORDERED: BISACODYL 10 MG SUPP PR PRN (16:06)
[2017-03-26] MEDS ORDERED: LACTULOSE 20 GM/30 ML UDCUP PO PRN (16:06)
[2017-03-26] MEDS ORDERED: POLYETHYLENE GLYCOL 3350 17 GM PKT PO PRN (16:06)
[2017-03-26] MEDS ORDERED: MAGNESIUM HYDROXIDE 30 ML UDCUP PO PRN (16:06)
--- NOTE | 2017-03-26 16:11 | HOSPPROG ---
Hospitalist Progress Note Assessment/Plan: # Acute alcohol pancreatitis - CT abdomen (personally reviewed and interpreted) multifocal pseudocysts pain improved overnight - using only PO pain meds -advance diet to clears - continue PO pain meds # Etoh abuse -counselled at length regarding need for absolute cessation- oxygen saturations 95% on RA -no evidence for withdrawal - on thiamine when taking consistent PO will stop IV # CAD of LAD by CT-outpatient stress test # hyperglycemia - HB A1c > 8 - will need to start new med in outpatient setting # Fatty liver - due to Etoh # obesity BMI 33 # HTN - norvasc # Tobacco dependence - patch I have discussed the case with RN - will advance to clears today and see how he does Subjective: pain improved Objective: Vital Signs Temp Pulse Resp BP Pulse Ox 36.8 C 86 14 133/84 H 97 03/26/17 08:00 03/26/17 08:00 03/26/17 08:00 03/26/17 08:52 03/26/17 08:00 Laboratory Results 03/26/17 04:17 03/26/17 04:17 03/25/17 03/26/17 03/27/17 05:59 05:59 05:59 Intake Total 2798 1500 Balance 2798 1500 PT 15.7 SEC (12.0-15.0) H 03/25/17 04:27 INR 1.25 (0.83-1.16) H 03/25/17 04:27 - Physical Exam Constitutional: obese Eyes: anicteric sclera Ears, Nose, Mouth, Throat: moist mucous membranes Cardiovascular: regular rate and rhythym Respiratory: no respiratory distress Gastrointestinal: normoactive bowel sounds, soft, non-tender abdomen Genitourinary: no bladder fullness Skin: warm, normal color Musculoskeletal: No asymmetric calves Neurologic: AAOx3 Psychiatric: interacting appropriately, not anxious Lymph, Heme, Immunologic: no cervical LAD ICD10 Worksheet Patient Problems: Problems Problem Status Onset Acute chest pain Acute Pancreatitis Acute
--- NOTE | 2017-03-26 17:44 | SOAPPROG ---
SOAP Progress Note Assessment/Plan: Assessment: 1. Acute on chronic pancreatitis with pseudocysts; symptoms improved. Plan: 1. Clears tonight. 2. Advance diet to full liquids tomorrow. 3. Follow-up with Dr Ward as outpatient. Long Bob MD 03/26/17 17:41 Subjective: CC: Pancreatitis with pseudocysts. Interval HPI: No abdominal pain or nausea, tolerating clears po. Objective: Vital Signs Temp Pulse Resp BP Pulse Ox 36.9 C 105 H 16 135/97 H 94 03/26/17 16:00 03/26/17 16:00 03/26/17 16:00 03/26/17 16:00 03/26/17 16:00 Laboratory Results 03/26/17 04:17 03/26/17 04:17 03/25/17 03/26/17 03/27/17 05:59 05:59 05:59 Intake Total 2798 1500 Balance 2798 1500 PT 15.7 SEC (12.0-15.0) H 03/25/17 04:27 INR 1.25 (0.83-1.16) H 03/25/17 04:27 Physical Exam - Physical Exam General Appearance: WD/WN, alert, no apparent distress Neck: supple Respiratory: lungs clear, normal breath sounds Cardiac/Chest: normal peripheral pulses, regular rate, rhythm Abdomen: normal bowel sounds, non-tender, distended Skin: normal color, warm/dry Neuro/Psych: alert, normal mood/affect, oriented x 3 ICD10 Worksheet Patient Problems: Problems Problem Status Onset Acute chest pain Acute Pancreatitis Acute
[2017-03-26] MEDS: SENNOSIDES/DOCUSATE SODIUM TAB PO SCH (19:57)
[2017-03-27] MEDS: ACETAMINOPHEN 325 MG TAB PO PRN ×3 (02:16→13:37)
[2017-03-27 04:35] VITALS: O2SAT 96
[2017-03-27] MEDS: NS 1,000 ML IV SCH (04:36)
[2017-03-27 05:14] LABS: PLATELET COUNT 129 10^3/uL (150-400)
[2017-03-27 08:27] VITALS: BP 139/94; PULSE 94; RESP 16; TEMP 99.7
[2017-03-27] MEDS: SENNOSIDES/DOCUSATE SODIUM TAB PO SCH (09:15)
[2017-03-27] MEDS: PANTOPRAZOLE SODIUM 40 MG TAB PO SCH (09:16)
[2017-03-27] MEDS: amLODIPine BESYLATE 5 MG TAB PO SCH (09:17)
[2017-03-27] MEDS: CITALOPRAM 20 MG TAB PO SCH (09:18)
[2017-03-27] MEDS: ENOXAPARIN 40 MG/0.4 ML SYR SC SCH (09:20)
[2017-03-27] MEDS: THIAMINE HCL 500 MG in NS 100 ML IV SCH (09:20)
[2017-03-27] MEDS: NICOTINE 14 MG/24 HR PATCH TD SCH (09:52)
--- NOTE | 2017-03-27 10:20 | ASMTCMCOM ---
CM Note CM Note Notes: Current Discharge Plan: Pt will dc home w/support of family when medically stable. Refused etoh resources, CM available for any changes. Date Signed: 03/27/2017 10:19 AM Electronically Signed By:Liana Poe RN
--- NOTE | 2017-03-27 10:20 | SOAPPROG ---
SOAP Progress Note Assessment/Plan: Assessment: 1. Acute on chronic pancreatitis with pseudocysts; symptoms improved. Plan: 1. Advance to low fat diet today. 2. D/C home later today or tomorrow if tolerates diet. 3. Follow-up with Dr Ward as outpatient. Long Bob MD 03/27/17 10:17 Subjective: CCC: Acute on chronic pancreatitis with pseudocysts. Interval HPI: Patient without abdominal pain or nausea. Tolerating po clears. Objective: Vital Signs Temp Pulse Resp BP Pulse Ox 37.6 C 94 16 139/94 H 96 03/27/17 08:00 03/27/17 08:00 03/27/17 08:00 03/27/17 09:17 03/27/17 08:00 Laboratory Results 03/27/17 04:27 03/27/17 04:27 03/26/17 03/27/17 03/28/17 05:59 05:59 05:59 Intake Total 1500 1440 Balance 1500 1440 PT 15.7 SEC (12.0-15.0) H 03/25/17 04:27 INR 1.25 (0.83-1.16) H 03/25/17 04:27 Physical Exam - Physical Exam General Appearance: WD/WN, alert, no apparent distress Respiratory: lungs clear, normal breath sounds Cardiac/Chest: regular rate, rhythm Abdomen: normal bowel sounds, non-tender, soft, distended Skin: warm/dry Neuro/Psych: alert, normal mood/affect, oriented x 3 ICD10 Worksheet Patient Problems: Problems Problem Status Onset Acute chest pain Acute Pancreatitis Acute
--- NOTE | 2017-03-27 11:54 | GCON ---
[f rep st] CONSULTATION DATE OF CONSULTATION: 03/25/2017 REASON FOR CONSULTATION: Abdominal pain. CHIEF COMPLAINT: Abdominal pain. HISTORY OF PRESENT ILLNESS: Saeid is a 41-year-old male with a history of alcohol use with recurrent pancreatitis [facility] of epigastric and left upper quadrant abdominal pain. The patient states that the pain is dull in nature and has been present for the last 3 days and has gotten progressively worse. It now lasts hours in duration and is exacerbated by oral intake with no alleviating factors. He states that he has been drinking alcohol on a daily basis. On his workup in the hospital, he is noted to have a slightly elevated lipase at 359. A CT scan was performed which did reveal some evolving fluid collections. The patient was initially admitted to [facility] on 07/06/2016 for acute pancreatitis, which was suspected to be alcohol-induced pancreatitis. He states he had several attacks of abdominal pain in 2016 as well. On one of his attacks noted to have a significantly elevated AST and ALT greater than 150. He eventually underwent a cholecystectomy. He also underwent an endoscopic ultrasound which did reveal parenchymal changes in his pancreas, but was not diagnostic for chronic pancreatitis. The patient did undergo a 30-day alcohol rehab program, but has been drinking recently. He states he only drinks 1 or 2 drinks a day. I am being asked by Dr. Ulloa to evaluate the patient in consultation regarding his abdominal pain. PAST MEDICAL HISTORY: 1. Alcohol use. 2. Recurrent pancreatitis. 3. Hypertension. PAST SURGICAL HISTORY: 1. Recent cholecystectomy. 2. Three surgeries on his right shoulder. ALLERGIES: NKDA. MEDICATIONS: Citalopram 40 mg a day, pantoprazole 40 mg a day, Norvasc 10 mg a day. SOCIAL HISTORY: Positive alcohol and tobacco. Works at a [employer]. FAMILY HISTORY: No history of colon cancer. REVIEW OF SYSTEMS: A comprehensive 14 review of systems was asked. Pertinent positives and negatives as per HPI. PHYSICAL EXAM: VITALS: Blood pressure 141/83, pulse 85, temperature 37.1, respirations 18. GENERAL: Awake, alert, oriented x3. No distress. HEENT: Anicteric, moist mucosa. NECK: No JVD. CARDIOVASCULAR: Regular rate and rhythm. Positive S1, S2. No murmurs or gallops are appreciated. LUNGS: Clear to auscultation bilateral. No wheezes, rales or rhonchi. ABDOMEN: Mild tenderness in midepigastrium. No guarding. No rebound. Positive bowel sounds. EXTREMITIES: No clubbing, edema. NEUROLOGIC: 2 through 12 grossly intact. PSYCH: Normal affect. LABORATORY DATA: Blood work: Sodium 140, potassium 3.8, chloride 104, bicarb 25, BUN 12, creatinine 0.7, AST 22, ALT 39, alk phos 181. CBC 8.6, hemoglobin 12.6, hematocrit 37.8, platelets 143. ASSESSMENT AND PLAN: 1. Abdominal pain, midepigastrium. He does not have a significant elevation in his pancreatic enzymes. CT scan does show a developing fluid collection, consistent with pancreatitis. In the absence of other causes, I suspect that his pain is from pancreatitis secondary to recent use of alcohol. I recommend to keep n.p.o. and give IV fluids. Would also recommend to monitor the alkaline phosphatase which was elevated. I had a long discussion with the patient and family about the dangers of cigarette use as well as alcohol use. I did discuss that cigarette use has also been linked to the progression of chronic pancreatitis. The patient and his parents understand this and will pursue rehabilitation for his alcohol use as well as tobacco cessation. 2. History of depression. 3. History of hypertension. Thank you very much for this consultation. /[id number]/MODL SPENCER
[2017-03-27] MEDS ORDERED: THIAMINE HCL 100 MG TAB PO SCH (13:24)
--- NOTE | 2017-03-27 19:05 | PDDCSUM ---
Discharge Summary Discharge Summary: DISCHARGE SUMMARY FOLLOW-UP ITEMS: Repeat hemoglobin A1c in approximately 3 months, surveillance of pseudocyst DATE OF ADMISSION: 03/24/2017 DATE OF DISCHARGE: 03/27/2017 DISCHARGE DIAGNOSES: 1. Acute on chronic alcoholic pancreatitis 2. Acute alcohol abuse 3. Suspected Chronic coronary artery disease 4. Hyperglycemia 5. Chronic hypertension 6. Pancreatic pseudocyst 7. Acute metabolic acidosis CONSULTATIONS: Gastroenterology PROCEDURES / IMAGING: CT of the abdomen demonstrating pancreatic pseudocysts, multifocal, largest 4.5 cm CHIEF COMPLAINT: Acute abdominal pain SUBJECTIVE: Patient is feeling well at time discharge, he is tolerating oral solid diet, he is not requiring any oral opiate medications, he is having a bowel movement early PHYSICAL EXAM ON DISCHARGE: Some blood pressure 130, heart rate 90, afebrile, sat well on room air, abdomen soft nontender nondistended, no epigastric tenderness, no tremulousness LABS ON DISCHARGE: Lipase 360, liver panel unremarkable, LDL 28, potassium 3.6, creatinine 0.7, serum bicarbonate 23 HOSPITAL COURSE BY PROBLEM: The patient presented with acute abdominal pain secondary to acute on chronic alcohol-induced pancreatitis with metabolic acidosis, positive alcohol level, lipase of 360, epigastric pain, and multifocal pseudocyst on abdominal CT. The patient was treated empirically with IV fluids, IV pain medications, and bowel rest. He clinically improved, and was advanced to liquid diet, and then a light bland diet. He also has pain medications adjusted from IV to oral, and on the day of discharge, the patient is not requiring any oral opiate medications. He will be discharged home with as needed antiemetics and pain medications, with close outpatient follow up with Dr. Prosper Ward to continue to monitor his pseudocyst. He was also notably hyperglycemic with a hemoglobin A1c of 8%, which is by definition a new diagnosis of diabetes mellitus. That being said, the patient may have been experiencing some chronic hyperglycemia in the setting of pancreatitis and pseudocyst formation, and the patient will receive repeat A1c in 3 months through his primary care provider office. If the patient continues to experience an A1c greater than 6.5% and hyperglycemia, then he will be initiated on either insulin or metformin at that time. Incidentally, the patient's chest imaging demonstrated possible coronary artery disease in the LAD, and the patient should undergo an outpatient stress test after his acute episode has resolved. DISCHARGE MEDICATIONS: Please see official discharge medication reconciliation sheet in chart , new home medications with the addition of as needed oxycodone and Zofran. DISCHARGE INSTRUCTIONS: Please follow up with both her primary care provider and Dr. Prosper Ward. TIME SPENT: Greater than 30 minutes were spent on direct patient care, as well as discharge planning and preparation.
== END 2017-03-27 17:00 | disposition home or self-care (01) | DRG 439 ==
LOC: F3E 12:25
PROVIDERS: ADMIT Internal Medicine; ATTEND Internal Medicine
DX: K85.20 Alcohol induced acute pancreatitis without necrosis or infection (principal); E87.2 Acidosis; K86.3 Pseudocyst of pancreas; F10.239 Alcohol dependence with withdrawal, unspecified; K86.0 Alcohol-induced chronic pancreatitis; E11.65 Type 2 diabetes mellitus with hyperglycemia; I25.10 Atherosclerotic heart disease of native coronary artery without angina pectoris; I10 Essential (primary) hypertension; F17.200 Nicotine dependence, unspecified, uncomplicated; Y90.3 Blood alcohol level of 60-79 mg/100 ml
CPT/HCPCS: G0480; J1170; J1650; J3411; Q9967

== ENCOUNTER 2018-06-23 03:15 | Emergency (ER) | payer OTHER ==
[2018-06-23 04:08] LABS: PLATELET COUNT 105 10^3/uL (150-400)
--- NOTE | 2018-06-23 05:31 | EDPHY ---
H & P Stated Complaint: worried about low BGL, feeling shakey Time Seen by Provider: 06/23/18 04:14 HPI/ROS: HPI The patient presents with feeling of dizziness and tremor, brought in by ambulance by EMS. The patient has a history of diabetes in uses insulin. He felt his blood glucose was low and checked it and it was 90 for, which for him is quite low. Normally his blood glucoses are no lower than 150. He ate some food and repeat blood glucoses were in the low 100s. He was concerned so called 911. He says over these last few days he has been drinking significant amounts of alcohol. He has not had any nausea or vomiting. He has no changes in his insulin dosing. . REVIEW OF SYSTEMS 10 systems were reviewed and negative with the exception of the elements mentioned in the history of present illness. PMHx: Diabetes on insulin, history of pancreatitis, hypertension Soc Hx: Alcohol drinker PHYSICAL General Appearance: Alert, no distress Eyes: Pupils equal and round no pallor or injection ENT, Mouth: Mucous membranes moist Respiratory: There are no retractions, lungs are clear to auscultation Cardiovascular: Regular rate and rhythm Gastrointestinal: Abdomen is soft and non-tender, no masses, bowel sounds normal Neurological: A&O, moves all extremities Skin: Warm and dry, no rashes Musculoskeletal: Neck is supple non tender Extremities: symmetrical, full range of motion Psychiatric: Patient is oriented X 3, there is no agitation Source: Patient, EMS Exam Limitations: No limitations - Personal History Current Tetanus/Diphtheria Vaccine: Yes Current Tetanus Diphtheria and Acellular Pertussis (TDAP): Yes - Medical/Surgical History Hx Asthma: No Hx Chronic Respiratory Disease: No Hx Diabetes: Yes Hx Cardiac Disease: No Hx Renal Disease: No Hx Cirrhosis: No Hx Alcoholism: Yes Hx HIV/AIDS: No Hx Splenectomy or Spleen Trauma: No Other PMH: alcoholism, Diabetes, pancreatitis, HTN - Social History Smoking Status: Current every day smoker Constitutional: Initial Vital Signs Temperature (C) 36.7 C 06/23/18 03:29 Heart Rate 93 06/23/18 03:29 Respiratory Rate 18 06/23/18 03:29 Blood Pressure 147/133 H 06/23/18 03:29 O2 Sat (%) 97 06/23/18 03:29 O2 Delivery Mode Room Air Allergies/Adverse Reactions: No Known Allergies Allergy (Unverified 06/23/18 03:20) Home Medications: Medication Instructions Recorded Humalog 06/23/18 Levemir 06/23/18 Metformin HCl 06/23/18 Pantoprazole Sodium 06/23/18 amLODIPine BESYLATE 06/23/18 Medical Decision Making Differential Diagnosis: 42-year-old man with diabetes on insulin, alcohol abuse, history of pancreatitis presents feeling tremulous and dizzy in association with blood glucose in the 90s which is quite low for him, brought in by ambulance. Here his blood glucose is normal. His vital signs are normal and his abdominal exam is unremarkable. Differential diagnosis includes alcohol intoxication, dehydration, hypoglycemia. The patient was monitored for several hours and had serial blood glucose checked which were all normal. Basic labs were normal showing no signs of DKA, alcohol intoxication, pancreatitis. He was able to eat without difficulty and was discharged home. - Data Points Laboratory Results: Laboratory Results 06/23/18 04:00 06/23/18 03:31 Point of Care Test Results: Chemistry 06/23/18 06/23/18 05:28 03:25 POC Glucose 145 mg/dL H mg/dL 225 mg/dL H mg/dL (70-100) (70-100) Departure - Departure Disposition: Home, Routine, Self-Care Clinical Impression: Diabetes mellitus, Dizziness Condition: Good Instructions: Managing Diabetes During Sick Days (ED) Additional Instructions: Please return to the emergency department if your worse in any way. Please check your blood glucose is frequently during the day.
[2018-06-23 06:04] VITALS: BP 150/100
== END 2018-06-23 06:04 | disposition home or self-care (01) ==
LOC: MERGE 03:15
DX: E11.9 Type 2 diabetes mellitus without complications (principal); Z79.4 Long term (current) use of insulin; I10 Essential (primary) hypertension
CPT/HCPCS: G0480

== ENCOUNTER 2018-07-14 18:08 | Inpatient (IN) | payer OTHER ==
[2018-07-14] MEDS ORDERED: NS 1,000 ML IV ONE ×2 (18:43)
[2018-07-14] MEDS ORDERED: PANTOPRAZOLE SODIUM 40 MG VIAL IVP ONE (18:43)
[2018-07-14] MEDS ORDERED: HYOSCYAMINE SULFATE 0.125 MG TAB PO ONE (18:44)
[2018-07-14] MEDS ORDERED: LIDOCAINE 2% VISCOUS 15 ML UDCUP PO ONE (18:44)
[2018-07-14] MEDS ORDERED: MAG HYDROX/AL HYDROX/SIMETH 30 ML UDCUP PO ONE (18:44)
[2018-07-14] MEDS ORDERED: ONDANSETRON 4 MG/2 ML VIAL IVP ONE (18:44)
--- NOTE | 2018-07-14 18:44 | EDPHY ---
H & P Stated Complaint: PANCREAS AND ULCER PAIN X2 HRS Time Seen by Provider: 07/14/18 18:42 HPI/ROS: HPI: This is a 42-year-old male who presents Chief Complaint: Epigastric pain, pancreatitis flare Location: epigastric Quality: Pain Duration: 2-3 hours ago Signs and Symptoms: no fever, + nausea, + vomiting, no hematemesis, + blood in stool, no abdominal bloating, no diarrhea, no back pain, no urinary symptoms, no testicular/groin pain, no indigestion, no chest pain, no shortness of breath Timing: Acute on chronic Severity: Moderate to severe Context: Patient has a history of insulin-dependent diabetes mellitus, alcoholism, pancreatitis, hypertension presents with 2-3 hour history of epigastric, sharp, constant, nonradiating pain that is similar to his prior pancreatitis flares. He reports that he has had 5-6 admissions for pancreatitis over the last 1 year. He admits that he has drank alcohol today. He had nausea and 1 episode of vomiting this morning. Denies hematemesis but does report he had blood in his stool this morning. Last EGD was [address] Ward in which the findings were gastric ulcer. Patient reports that he has not ate or drank anything today. He took his Levemir last night but only 1 dose of Humalog today. His current blood sugar meter is red restrained 304. Patient reports that he called his primary care provider and they recommended that he come to the ER for admission. Last admission required 10 days in the hospital and ICU due to alcohol withdrawal. Modifying Factors: None Comment: ROS: A comprehensive 10 system review of systems is otherwise negative aside from elements mentioned in the history of present illness. MEDICAL/SURGICAL/SOCIAL HISTORY: Medical history: alcoholism, Diabetes, pancreatitis, HTN Surgical history: Denies Social history: Employed at [employer]. Alcohol use. Smoker. Family history noncontributory. CONSTITUTIONAL: Nontoxic-appearing, moderate distress, red faced, overweight, middle-aged white male awake and alert, mother and father at bedside HEENT: Atraumatic and normocephalic, PERRL, EOMI. Nares patent; no rhinorrhea; no nasal mucosal edema. Tympanic membranes clear. Oropharynx clear, no exudate and moist pink mucosa. Airway patent. No lymphadenopathy. No meningismus. Cardiovascular: Normal S1/S2, regular rate, regular rhythm, without murmur rub or gallop. PULMONARY/CHEST: Symmetrical and nontender. Clear to auscultation bilaterally. Good air movement. No accessory muscle usage. ABDOMEN: Soft, nondistended, moderate epigastric tenderness, no rebound, no guarding, no peritoneal signs, no masses or organomegaly. No CVAT. EXTREMITIES: 2/2 pulses, strength 5/5, no deformities, no clubbing, no cyanosis or edema. NEUROLOGICAL: no focal neuro deficits. GCS 15. SKIN: Warm and dry, no erythema. no rash. Good capillary refill. Source: Patient, Family (Mother and father), Old records Exam Limitations: No limitations - Personal History Current Tetanus/Diphtheria Vaccine: Yes - Medical/Surgical History Hx Asthma: No Hx Chronic Respiratory Disease: No Hx Diabetes: Yes Hx Cardiac Disease: No Hx Renal Disease: No Hx Cirrhosis: No Hx Alcoholism: Yes Hx HIV/AIDS: No Hx Splenectomy or Spleen Trauma: No Other PMH: alcoholism, Diabetes, pancreatitis, HTN - Social History Smoking Status: Current every day smoker Constitutional: Initial Vital Signs Temperature (C) 37.0 C 07/14/18 18:16 Heart Rate 94 07/14/18 18:16 Respiratory Rate 20 07/14/18 18:16 Blood Pressure 135/95 H 07/14/18 18:16 O2 Sat (%) 95 07/14/18 18:16 O2 Delivery Mode Room Air Allergies/Adverse Reactions: No Known Allergies Allergy (Verified 07/14/18 18:13) Home Medications: Medication Instructions Recorded Insulin Lispro [HumaLOG LISPRO] 0 unit SC TIDMEAL PRN 01/09/18 amLODIPine BESYLATE [Norvasc 5 mg 5 mg PO DAILY 01/09/18 (*)] metFORMIN HCL [Glucophage 500 mg 1,000 mg PO BIDMEAL 01/09/18 (*)] Levemir 06/23/18 Pantoprazole Sodium 06/23/18 Medical Decision Making ED Course/Re-evaluation: Vital signs reviewed and stable upon arrival. No systemic signs. IV access, laboratory studies, medications ordered Given 2 L normal saline, IV Protonix 80 mg, GI cocktail, IV Zofran 4 mg, IV Dilaudid 1 mg 1928: Labs reviewed. No signs of leukocytosis/anemia/platelet dysfunction/CHRISTY/ elevated LFTs/electrolyte imbalance/pancreatitis. Glucose 292-no signs of DKA. Lipase 16. Ethanol alcohol 205. 2006: Stool reassessed patient who reports that pain is severe. Requesting admission for IV pain medication. Parents do not feel comfortable taking patient home. 2013: ED decision to consult hospitalist for admission. Is spoke with hospitalist, Dr. De La Cruz, who kindly agrees to admit to admit patient and provide further care for intractable acute on chronic abdominal pain, history of pancreatitis, diabetic. This patient was seen under the supervision of my secondary supervising physician. I evaluated care for this patient with attending. Discussed this patient with Dr. Jacobs. Differential Diagnosis: Abdominal pain including but not limited to appendicitis, cholecystitis, pancreatitis, gastritis and urinary tract infection. - Data Points Laboratory Results: Laboratory Results 07/14/18 18:55 07/14/18 18:55 07/14/18 07/14/18 18:55 18:55 WBC 7.48 10^3/uL 10^3/uL (3.80-9.50) RBC 5.13 10^6/uL 10^6/uL (4.40-6.38) Hgb 14.9 g/dL g/dL (13.7-17.5) Hct 45.3 % % (40.0-51.0) MCV 88.3 fL fL (81.5-99.8) MCH 29.0 pg pg (27.9-34.1) MCHC 32.9 g/dL g/dL (32.4-36.7) RDW 14.4 % % (11.5-15.2) Plt Count 201 10^3/uL 10^3/uL (150-400) MPV 10.3 fL fL (8.7-11.7) Neut % (Auto) 47.9 % % (39.3-74.2) Lymph % (Auto) 44.9 % % (15.0-45.0) [place] % (Auto) 5.9 % % (4.5-13.0) Eos % (Auto) 0.9 % % (0.6-7.6) Baso % (Auto) 0.3 % % (0.3-1.7) Nucleat RBC Rel Count 0.0 % % (0.0-0.2) Absolute Neuts (auto) 3.58 10^3/uL 10^3/uL (1.70-6.50) Absolute Lymphs (auto) 3.36 10^3/uL H 10^3/uL (1.00-3.00) Absolute Monos (auto) 0.44 10^3/uL 10^3/uL (0.30-0.80) Absolute Eos (auto) 0.07 10^3/uL 10^3/uL (0.03-0.40) Absolute Basos (auto) 0.02 10^3/uL 10^3/uL (0.02-0.10) Absolute Nucleated RBC 0.00 10^3/uL 10^3/uL (0-0.01) Immature Gran % 0.1 % % (0.0-1.1) Immature Gran # 0.01 10^3/uL 10^3/uL (0.00-0.10) Sodium 138 mEq/L mEq/L (135-145) Potassium 4.3 mEq/L mEq/L (3.5-5.2) Chloride 109 mEq/L mEq/L (97-110) Carbon Dioxide 22 mEq/l mEq/l (22-31) Anion Gap 7 mEq/L mEq/L (6-14) BUN 9 mg/dL mg/dL (7-23) Creatinine 0.8 mg/dL mg/dL (0.7-1.3) Estimated GFR > 60 Glucose 292 mg/dL H mg/dL (70-100) Calcium 8.9 mg/dL mg/dL (8.5-10.4) Total Bilirubin 0.4 mg/dL mg/dL (0.1-1.4) Conjugated Bilirubin 0.3 mg/dL mg/dL (0.0-0.5) Unconjugated Bilirubin 0.1 mg/dL mg/dL (0.0-1.1) AST 31 IU/L IU/L (17-59) ALT 37 IU/L IU/L (21-72) Alkaline Phosphatase 88 IU/L IU/L (38-126) Total Protein 6.7 g/dL g/dL (6.3-8.2) Albumin 4.1 g/dL g/dL (3.5-5.0) Lipase 16 IU/L L IU/L (23-300) Ethyl Alcohol 205 mg/dL H mg/dL (0-10) Medications Given: Discontinued Medications Al Hydroxide/Mg Hydroxide (Maalox Susp) 30 ml PO ONCE ONE Stop: 07/14/18 18:45 Last Admin: 07/14/18 19:08 Dose: 30 ml Hydromorphone HCl (Dilaudid) 1 mg IVP EDNOW ONE Stop: 07/14/18 18:50 Last Admin: 07/14/18 19:45 Dose: 1 mg Hyoscyamine Sulfate (Levsin, Hyomax-Sl) 0.25 mg PO ONCE ONE Stop: 07/14/18 18:45 Last Admin: 07/14/18 19:08 Dose: 0.25 mg Sodium Chloride (Ns) 1,000 mls @ 0 mls/hr IV EDNOW ONE; Wide Open PRN Reason: Protocol Stop: 07/14/18 18:44 Last Admin: 07/14/18 19:03 Dose: 1,000 mls Sodium Chloride (Ns) 1,000 mls @ 0 mls/hr IV EDNOW ONE; Wide Open PRN Reason: Protocol Stop: 07/14/18 18:44 Last Admin: 07/14/18 19:04 Dose: 1,000 mls Lidocaine (Lidocaine 2% Viscous) 15 ml PO ONCE ONE Stop: 07/14/18 18:45 Last Admin: 07/14/18 19:08 Dose: 15 ml Ondansetron HCl (Zofran) 4 mg IVP EDNOW ONE Stop: 07/14/18 18:45 Last Admin: 07/14/18 19:07 Dose: 4 mg Pantoprazole Sodium (Protonix) 80 mg IVP EDNOW ONE Stop: 07/14/18 18:44 Last Admin: 07/14/18 19:04 Dose: 80 mg Departure - Departure Disposition: [facility] Acute Clinical Impression: Acute on chronic pancreatitis, Alcohol abuse with alcohol-induced disorder, Intractable abdominal pain Condition: Fair
[2018-07-14] MEDS ORDERED: HYDROmorphONE/DILAUDID 2 MG/ML INJ IVP ONE (18:49)
[2018-07-14 19:01] LABS: PLATELET COUNT 201 10^3/uL (150-400)
[2018-07-14] MEDS ORDERED: PROMETHAZINE HCL 25 MG/ML INJ IVP PRN (20:47)
[2018-07-14] MEDS ORDERED: ONDANSETRON DISINTEGRATING 4 MG TAB PO PRN (20:47)
[2018-07-14] MEDS ORDERED: ONDANSETRON 4 MG/2 ML VIAL IVP PRN (20:47)
[2018-07-14] MEDS ORDERED: ACETAMINOPHEN 325 MG TAB PO PRN (20:47)
[2018-07-14] MEDS ORDERED: FLUMAZENIL 0.5 MG/5 ML MDV IVP PRN (20:52)
[2018-07-14] MEDS ORDERED: LORazepam 2 MG/ML INJ IVP PRN (20:52)
[2018-07-14] MEDS ORDERED: MAG HYDROX/AL HYDROX/SIMETH 30 ML UDCUP PO PRN (20:52)
[2018-07-14] MEDS ORDERED: FAMOTIDINE 20 MG/NACL 50 ML IV SCH (21:00)
[2018-07-14] MEDS: NS 1,000 ML IV SCH (22:11)
[2018-07-14] MEDS: HYDROmorphONE/DILAUDID 1 MG/ML INJ IVP PRN (22:14)
[2018-07-14] MEDS: oxyCODONE IR 5 MG TAB PO PRN (22:33)
--- NOTE | 2018-07-14 23:05 | PDGENHP ---
History and Physical - Chief Complaint abdominal pain - History of Present Illness 42 yo M with PMH of recurrent chronic pancreatitis as well as alcohol abuse and withdrawal who presents with acute abdominal pain consistent with his prior bouts of pancreatitis. Patient notes that he has been drinking heavily over the last several days, up to 1L of vodka per day. He has tried to quit in the past and been unsuccessful. He frequently will get pancreatitis when he drinks as much as he recently did. He has issues with n/v and that is fairly typical for him. He has been having loose watery stools this morning, does not notice passing much gas this afternoon. His last drink was around noon today per his report however at approximately 7pm patient was still smelling strongly of alcohol and appeared intoxicated. He states he has a plan to leave the hospital and enter [facility] inpatient alcohol treatment program the next day. His parents are at bedside and agree with this plan. History Information - Allergies/Home Medication List Allergies/Adverse Reactions: No Known Allergies Allergy (Verified 07/14/18 18:13) Home Medications: Insulin Lispro [HumaLOG LISPRO] 1 - 2 unit SC TIDMEAL PRN 01/09/18 [Last Taken 07/14/18 08:00] amLODIPine BESYLATE [Norvasc 5 mg (*)] 5 mg PO DAILY 01/09/18 [Last Taken 08:00] Insulin Detemir [Levemir] 20 unit SQ HS 06/23/18 [Last Taken 07/13/18 21:00] Pantoprazole Sodium [Protonix 40mg (*)] 40 mg PO DAILY 06/23/18 [Last Taken 08:00] Acetaminophen [Tylenol ES 500 mg (*)] 1,000 mg PO Q6 PRN 07/14/18 [Last Taken ] Metformin HCl [Metformin 1000 mg] 1,000 mg PO BIDMEAL 07/14/18 [Last Taken 07/14 08:00] I have personally reviewed and updated: family history, medical history, social history, surgical history - Past Medical History diabetes type 2, GERD, hypertension Additional medical history: alcohol dependence. recurrent pancreatitis - h/o pseudocysts on CT 03/2017. peptic ulcer disease - Surgical History Reports: cholecystectomy - Family History Positive for: non-pertinent Additional family history: Alcohol - Social History Smoking Status: Current every day smoker Alcohol Use: Heavy Drug Use: None Additional social history: Lives with roommate, works in the [employer] business Review of Systems Review of Systems: ROS: 10pt was reviewed & negative except for what was stated in HPI & below Physical Exam Physical Exam: Temp Pulse Resp BP Pulse Ox 36.6 C 80 16 135/84 H 92 07/14/18 22:47 07/14/18 22:47 07/14/18 22:47 07/14/18 22:47 07/14/18 22:47 Constitutional: not in pain, chronically ill appearing Eyes: PERRL, anicteric sclera Ears, Nose, Mouth, Throat: hearing normal, dry mucous membranes Cardiovascular: regular rate and rhythym, no murmur, rub, or gallop, No edema Respiratory: no respiratory distress, no rales or rhonchi Gastrointestinal: normoactive bowel sounds, soft, non-tender abdomen Genitourinary: no bladder tenderness Skin: warm, normal color Musculoskeletal: full muscle strength Neurologic: AAOx3 Psychiatric: interacting appropriately, not anxious, not encephalopathic Lab Data & Imaging Review 07/14/18 18:55 07/14/18 18:55 WBC 7.48 10^3/uL (3.80-9.50) 07/14/18 18:55 RBC 5.13 10^6/uL (4.40-6.38) 07/14/18 18:55 Hgb 14.9 g/dL (13.7-17.5) 07/14/18 18:55 Hct 45.3 % (40.0-51.0) 07/14/18 18:55 MCV 88.3 fL (81.5-99.8) 18 18:55 MCH 29.0 pg (27.9-34.1) 07/14/18 18:55 MCHC 32.9 g/dL (32.4-36.7) 07/14/18 18:55 RDW 14.4 % (11.5-15.2) 07/14/18 18:55 Plt Count 201 10^3/uL (150-400) 07/14/18 18:55 MPV 10.3 fL (8.7-11.7) 07/14/18 18:55 Neut % (Auto) 47.9 % (39.3-74.2) 07/14/18 18:55 Lymph % (Auto) 44.9 % (15.0-45.0) 07/14/18 18:55 Miner % (Auto) 5.9 % (4.5-13.0) 07/14/18 18:55 Eos % (Auto) 0.9 % (0.6-7.6) 07/14/18 18:55 Baso % (Auto) 0.3 % (0.3-1.7) 07/14/18 18:55 Nucleat RBC Rel Count 0.0 % (0.0-0.2) 07/14/18 18:55 Absolute Neuts (auto) 3.58 10^3/uL (1.70-6.50) 07/14/18 18:55 Absolute Lymphs (auto) 3.36 10^3/uL (1.00-3.00) H 07/14/18 18:55 Absolute Monos (auto) 0.44 10^3/uL (0.30-0.80) 07/14/18 18:55 Absolute Eos (auto) 0.07 10^3/uL (0.03-0.40) 07/14/18 18:55 Absolute Basos (auto) 0.02 10^3/uL (0.02-0.10) 07/14/18 18:55 Absolute Nucleated RBC 0.00 10^3/uL (0-0.01) 07/14/18 18:55 Immature Gran % 0.1 % (0.0-1.1) 07/14/18 18:55 Immature Gran # 0.01 10^3/uL (0.00-0.10) 07/14/18 18:55 Sodium 138 mEq/L (135-145) 07/14/18 18:55 Potassium 4.3 mEq/L (3.5-5.2) 07/14/18 18:55 Chloride 109 mEq/L (97-110) 07/14/18 18:55 Carbon Dioxide 22 mEq/l (22-31) 07/14/18 18:55 Anion Gap 7 mEq/L (6-14) 07/14/18 18:55 BUN 9 mg/dL (7-23) 07/14/18 18:55 Creatinine 0.8 mg/dL (0.7-1.3) 07/14/18 18:55 Estimated GFR > 60 07/14/18 18:55 Glucose 292 mg/dL (70-100) H 07/14/18 18:55 Calcium 8.9 mg/dL (8.5-10.4) 07/14/18 18:55 Total Bilirubin 0.4 mg/dL (0.1-1.4) 07/14/18 18:55 Conjugated Bilirubin 0.3 mg/dL (0.0-0.5) 07/14/18 18:55 Unconjugated Bilirubin 0.1 mg/dL (0.0-1.1) 07/14/18 18:55 AST 31 IU/L (17-59) 07/14/18 18:55 ALT 37 IU/L (21-72) 07/14/18 18:55 Alkaline Phosphatase 88 IU/L (38-126) 07/14/18 18:55 Total Protein 6.7 g/dL (6.3-8.2) 07/14/18 18:55 Albumin 4.1 g/dL (3.5-5.0) 07/14/18 18:55 Lipase 16 IU/L (23-300) L 07/14/18 18:55 Ethyl Alcohol 205 mg/dL (0-10) H 07/14/18 18:55 Assessment & Plan Assessment: Acute on chronic pancreatitis (Acute) Alcohol abuse with alcohol-induced disorder (Acute) Intractable abdominal pain (Acute) 42 yo M with hx of recurrent pancreatitis and etoh abuse presenting with abdominal pain likely due to acute on chronic pancreatitis # acute on chronic pancreatitis: consistent with his prior bouts of pancreatitis and in the setting of recurrent bouts even with normal lipase this is presumable etiology, will start IVF, keep NPO and pain medications as needed. He is followed by Dr. Ward, has a hx of pseudocyst. Nothing to suggest complications at this time. # etoh abuse and withdrawal: patient presenting intoxicated and already slightly tremulous and showing signs of early withdrawal, high risk for significant withdrawal but has not hx of w/d seizures. Started on CIWA, plans for [facility] after dc. LFTs wnl. # diabetes: due to recurrent pancreatitis with shrunken pancreas noted on prior imaging, A1C in 04/2018 was 15 and patient notes he continues to not treat his diabetes in general, will start SSI and get repeat A1c # GERD/PUD: will continue PPI # IP status, suspect patient will require > 48 hours stay for eval/mgmt of above Patient new to my care. Old records reviewed and summarized as above. Care plan reviewed with ER doctor. Further hx obtained from patients parents present at bedside.
[2018-07-14] MEDS ORDERED: D50W 25 GM/50 ML VIAL IVP PRN (23:10)
[2018-07-15] MEDS: HYDROmorphONE/DILAUDID 1 MG/ML INJ IVP PRN ×6 (00:20→20:11)
[2018-07-15] MEDS ORDERED: NALOXONE HCL 0.4 MG/ML INJ IVP PRN (00:53)
[2018-07-15] MEDS: LORazepam 1 MG TAB PO SCH ×3 (01:43→13:09)
[2018-07-15] MEDS: NS 1,000 ML IV SCH ×2 (02:53→09:23)
[2018-07-15 05:18] LABS: PLATELET COUNT 141 10^3/uL (150-400)
[2018-07-15] MEDS: FOLIC ACID 1 MG TAB PO SCH (08:43)
[2018-07-15] MEDS: MULTIVITAMINS 1 EACH TAB PO SCH (08:43)
[2018-07-15] MEDS: amLODIPine BESYLATE 5 MG TAB PO SCH (08:43)
[2018-07-15] MEDS: ENOXAPARIN 40 MG/0.4 ML SYR SC SCH (08:44)
[2018-07-15] MEDS: PANTOPRAZOLE SODIUM 40 MG TAB PO SCH (08:44)
[2018-07-15] MEDS: THIAMINE HCL 500 MG in NS 100 ML IV SCH (08:44)
--- NOTE | 2018-07-15 08:45 | HOSPPROG ---
Hospitalist Progress Note Assessment/Plan: 42 yo M with hx of recurrent pancreatitis and etoh abuse presenting with abdominal pain likely due to acute on chronic pancreatiti. First encounter, chart reviewed. # acute on chronic pancreatitis -supportive care w IV hydration and pain med -followed by Dr Ward, has a hx of pseudocyst -will get an ultrasound to further evaluate *etoh abuse and withdrawal -on admission was intoxicated, BAL 205 -CIWA -plan is for [facility] [place] -stable LFT's * diabetes: due to recurrent pancreatitis with shrunken pancreas noted on prior imaging -A1C in 04/2018 was 15 -patient has not been compliant w treatment -on sliding scale here * GERD/PUD - PPI *thrombocytopenia -due to alcohol use *plan: trial of clear liquids. Subjective: Mak said he is having ongoing abominal pain. Objective: Vital Signs Temp Pulse Resp BP Pulse Ox 36.6 C 80 16 134/94 H 98 07/15/18 07:55 07/15/18 07:55 07/15/18 07:55 07/15/18 07:55 07/15/18 07:55 Laboratory Results 07/15/18 04:34 07/15/18 04:34 07/14/18 07/15/18 07/16/18 05:59 05:59 05:59 Intake Total 2810 Output Total 500 Balance 2310 - Physical Exam Constitutional: uncomfortable, No not in pain Eyes: PERRL Ears, Nose, Mouth, Throat: hearing normal Cardiovascular: regular rate and rhythym Respiratory: no respiratory distress Gastrointestinal: normoactive bowel sounds, distension (he had no pain w palpation during my interview, was nontender in all 4 quadrants) Skin: warm Neurologic: AAOx3 Psychiatric: interacting appropriately, not anxious, not encephalopathic ICD10 Worksheet Patient Problems: Problems Problem Status Onset Acute on chronic pancreatitis Acute Alcohol abuse with alcohol-induced disorder Acute Intractable abdominal pain Acute Acute alcoholic pancreatitis Acute Acute chest pain Acute Pancreatitis Acute
--- NOTE | 2018-07-15 09:43 | PDMN ---
Medical Necessity Medical necessity: [facility] M595 Substance Related D/O, 2 days: 43 yo w/ abd pain, acute on chronic pancreatitis and alcohol w/d. CIWA protocol started. Per pt showing early s/sx w/d w/ tremors, high risk for significant w/d. Pt requiring IVF, freq IV Ativan admin, IV opioids for pain management and IV antiemetics for n/v. NPO. PT/OT ordered. IP status, suspect patient will require > 48 hours stay for eval/mgmt of above. Meets [facility] IP criteria for M595 for w/d w/ tremors, n/v, high risk per MD, freq IV Ativan required and additional medical issues of abd pain and pancreatitis.
--- NOTE | 2018-07-15 10:00 | ASMTCASEMG ---
Living Arrangements What is your living Answers: With One Parent arrangement? Who do you live with? Type Of Residence What kind of residence do Answers: House you live in? Discharge Plan Comments Coordination Status Comments Notes: Patient is a 42yo single male with a hx of pancreatitis and etoh abuse presenting with abdominal pain likely due to on chronic pancreatitis. Patient is being admitted for etoh abuse and withdrawal and acute on chronic pancreatitis. Patient's parents have been at bedside. Patient plans to enter [facility] at discharge. CM available if additional d/c needs arise. Date Signed: 07/15/2018 09:59 AM Electronically Signed By:Matilda Fuller LCSW
[2018-07-15] MEDS: INSULIN LISPRO 100 UNIT/ML SC SCH ×3 (10:30→19:21)
[2018-07-15] MEDS: oxyCODONE IR 5 MG TAB PO PRN (10:57)
[2018-07-15] MEDS ORDERED: LORazepam 1 MG TAB PO PRN (13:22)
[2018-07-15] MEDS ORDERED: diphenhydrAMINE 25 MG CAP PO PRN (13:52)
[2018-07-15] MEDS ORDERED: DIPHENHYDRAMINE CREAM TP PRN (13:57)
[2018-07-15] MEDS: OXYCODONE/APAP 5/325 TAB PO PRN (17:23)
[2018-07-15] MEDS: INSULIN GLARGINE 100 UNITS/ML UNIT SC SCH (21:02)
[2018-07-16 05:03] LABS: PLATELET COUNT 97 10^3/uL (150-400)
[2018-07-16] MEDS: NS 1,000 ML IV SCH (05:51)
[2018-07-16] MEDS: INSULIN LISPRO 100 UNIT/ML SC SCH ×3 (09:09→18:33)
[2018-07-16] MEDS: PANTOPRAZOLE SODIUM 40 MG TAB PO SCH ×2 (09:27→20:45)
[2018-07-16] MEDS: FOLIC ACID 1 MG TAB PO SCH (09:27)
[2018-07-16] MEDS: amLODIPine BESYLATE 5 MG TAB PO SCH (09:27)
[2018-07-16] MEDS: THIAMINE HCL 500 MG in NS 100 ML IV SCH (09:28)
[2018-07-16] MEDS: ENOXAPARIN 40 MG/0.4 ML SYR SC SCH (09:28)
[2018-07-16] MEDS: OXYCODONE/APAP 5/325 TAB PO PRN (09:28)
[2018-07-16] MEDS: MULTIVITAMINS 1 EACH TAB PO SCH (09:28)
--- NOTE | 2018-07-16 10:00 | HOSPPROG ---
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 No pseudocyst now by sono. He did have pancreatitis with lipase greater than 700 in December, so with lipase of 16 now hard to tell if this is alcohol gastritis or alcohol pancreatitis. He has normal WBC and normal abdominal exam nontender, less consistent with pancreatitis PLANS: * Increased Protonix to twice daily * Continue IV hydration for now * Start adding some starch to his diet at this time see how he tolerates that, advanced if he tolerates well * Continue thiamin * Continue CIWA monitoring, but if he does not develop obvious signs of withdrawal will stop the withdrawal protocols in the next day or 2 * Follow sugars on insulin * For pain management will want to minimize use of narcotics as able in this patient with obvious addiction problems that he is not able to control so far * He is planning to go to [facility] after this admission for alcohol counseling Patient and family members had numerous questions today which I answered in detail for them SUBJECTIVE: States pain is better today than yesterday No nausea Tolerating clear liquids without any difficulty OBJECTIVE Vitals reviewed: Mild hypertension otherwise all normal without fever Exam: alert oriented relaxed skin warm dry color ok, no jaundice resps not labored lungs clear BSs heart regular abd soft nondistended nontender, bowel sounds present, no palpable abnormality limbs warm, no edema iv site ok Lab data: Sugars notably improved in 120s to 130s Otherwise normal metabolic panel AST/ALT now increased to 258/103 and bilirubin increased to 3.3 Platelets dropped slightly further otherwise stable CBC I reviewed the CT scan images from his previous recent admission, I do not see any evidence of inflammatory change in the region of the pancreas, however the pancreas is extremely atrophied. I do not see pancreatic calcifications. Objective: Vital Signs Temp Pulse Resp BP Pulse Ox 36.5 C 75 16 138/86 H 91 L 07/16/18 08:00 07/16/18 08:00 07/16/18 08:00 07/16/18 09:27 07/16/18 08:00 Laboratory Results 07/16/18 04:45 07/16/18 04:45 07/15/18 07/16/18 07/17/18 06:59 06:59 06:59 Intake Total 2810 3551 Output Total 500 1400 400 Balance 2310 2151 -400 - Time Spent With Patient Time Spent with Patient: greater than 35 minutes Time Spent with Patient: Greater than 35 minutes spent on this patients care, greater than 50% of time spent counseling, educating, and coordinating care regarding the above mentioned plan. ICD10 Worksheet Patient Problems: Problems Problem Status Onset Acute on chronic pancreatitis Acute Alcohol abuse with alcohol-induced disorder Acute Intractable abdominal pain Acute Acute alcoholic pancreatitis Acute Acute chest pain Acute Pancreatitis Acute
[2018-07-16] MEDS: diphenhydrAMINE 25 MG CAP PO PRN ×2 (11:35→18:33)
[2018-07-16] MEDS: traMADol 50 MG TAB PO PRN ×2 (11:49→20:44)
[2018-07-16] MEDS: oxyCODONE IR 5 MG TAB PO PRN ×2 (17:33→18:32)
[2018-07-16] MEDS: INSULIN GLARGINE 100 UNITS/ML UNIT SC SCH (20:27)
[2018-07-17 07:45] VITALS: BP 116/83
[2018-07-17] MEDS: INSULIN LISPRO 100 UNIT/ML SC SCH (08:02)
--- NOTE | 2018-07-17 09:53 | HOSPPROG ---
Hospitalist Progress Note Assessment/Plan: 43 yo m w alcoholic pancreatitis resolved eating home today see dc summary > 30 minutes Objective: Vital Signs Temp Pulse Resp BP Pulse Ox 36.6 C 57 L 16 116/83 H 95 07/17/18 07:43 07/17/18 07:43 07/17/18 07:43 07/17/18 07:43 07/17/18 07:43 Laboratory Results 07/16/18 04:45 07/16/18 04:45 07/16/18 07/17/18 07/18/18 05:59 05:59 05:59 Intake Total 3551 2383 Output Total 1400 400 Balance 2151 1982 - Physical Exam Constitutional: no apparent distress, not in pain Ears, Nose, Mouth, Throat: hearing normal Cardiovascular: regular rate and rhythym, no murmur, rub, or gallop, No tachycardia Respiratory: no respiratory distress, no rales or rhonchi Gastrointestinal: normoactive bowel sounds, soft, non-tender abdomen, No guarding, No rebound Genitourinary: no bladder fullness, No gamboa in urethra Skin: warm Musculoskeletal: full muscle strength Neurologic: AAOx3 ICD10 Worksheet Patient Problems: Problems Problem Status Onset Acute on chronic pancreatitis Acute Alcohol abuse with alcohol-induced disorder Acute Intractable abdominal pain Acute Acute alcoholic pancreatitis Acute Acute chest pain Acute Pancreatitis Acute
[2018-07-17] MEDS: MULTIVITAMINS 1 EACH TAB PO SCH (09:55)
[2018-07-17] MEDS: amLODIPine BESYLATE 5 MG TAB PO SCH (09:56)
[2018-07-17] MEDS: PANTOPRAZOLE SODIUM 40 MG TAB PO SCH (09:56)
[2018-07-17] MEDS: FOLIC ACID 1 MG TAB PO SCH (09:56)
[2018-07-17] MEDS: THIAMINE HCL 500 MG in NS 100 ML IV SCH (09:56)
[2018-07-17] MEDS: ENOXAPARIN 40 MG/0.4 ML SYR SC SCH (09:56)
--- NOTE | 2018-07-17 10:09 | GDS ---
[f rep st] DISCHARGE SUMMARY DISCHARGE DIAGNOSES: 1. Alcoholism with binge behavior. 2. Alcoholic pancreatitis. 3. Alcoholic hepatitis. 4. Diabetes. 5. Hypertension. Please see admission history and physical by Dr. Frida De La Cruz. The patient presented with abdomin al pain in the setting of alcohol intoxication. He had an elevated lipase. He does have a history o f chronic pancreatitis. This pain was similar to his previous presenting symptoms. He had an ultras ound showing no pseudocyst. He did have a normal lipase while here. His bilirubin was elevated at 1 .6 with transaminases in the 1 to 200s. He received IV fluid resuscitation. On the 2nd hospital day, the patient is tolerating orals well and eating. [facility] His parents have a plan to bring him to an inpatient alcohol rehab center. /[id number]/MODL
--- NOTE | 2018-07-17 10:34 | ASDISCHSUM ---
Discharge Information Plan Status:Home with No Needs Medically Cleared to Leave:07/16/2018 Discharge Date:07/16/2018 CM D/C Disposition:Home, Routine, Self-Care ADT D/C Disposition: Projected Discharge Date:07/16/2018 Transportation at D/C:Family Discharge Delay Reason: Follow-Up Date:07/16/2018 Discharge Slot: Final Diagnosis: Placement Information Patient Contact Information Contact Name:SAM Relationship:Mother [address] [facility] Work Phone: City:[facility] Phone: [facility]/Zip Code:[place] [address] Email: Financial Information Financial Class:HMO and PPO Plans Primary Plan Desc:[employer] Primary Plan Number:[id number] Secondary Plan Desc: Secondary Plan Number: Assessment Information LACE LACE Length of stay for Answers: 3 days current admission Acuity / Level of Answers: Yes Care: Did the patient have an inpatient admission? Comorbidities - select Answers: Diabetes (uncontrolled or all that apply controlled) Peptic ulcer disease Other Notes: HTN # of Emergency department Answers: 3-4 visits in the last 6 months Social determinants Answers: History of substance abuse (ETOH, street drugs, prescription drugs, etc.) Score: 16 Date Signed: 07/17/2018 10:33 AM Electronically Signed By:Shanna Mcdermott RN [facility] Initial CM Assessment Living Arrangements What is your living Answers: With One Parent arrangement? Who do you live with? Type Of Residence What kind of residence do Answers: House you live in? Discharge Plan Comments Coordination Status Comments Notes: Patient is a 42yo single male with a hx of pancreatitis and etoh abuse presenting with abdominal pain likely due to on chronic pancreatitis. Patient is being admitted for etoh abuse and withdrawal and acute on chronic pancreatitis. Patient's parents have been at bedside. Patient plans to enter [facility] at discharge. CM available if additional d/c needs arise. Date Signed: 07/15/2018 09:59 AM Electronically Signed By:Matilda Fuller LCSW Case Management Discharge Plan Note Case Management Discharge Discharge Order Complete? Answers: Yes Patient to Obtain Answers: via Family Medications Transportation Arranged Answers: Family/Friends Discharge Comments Notes: 07/17/2018 Case Management Note Pt to discharge with family support and plans to start alcohol rehab with [facility]. Date Signed: 07/17/2018 10:33 AM Electronically Signed By:Shanna Mcdermott RN Intervention Information
[2018-07-18] MEDS ORDERED: THIAMINE HCL 100 MG TAB PO SCH (09:00)
== END 2018-07-17 11:00 | disposition home or self-care (01) | DRG 440 ==
LOC: F3E 21:23
PROVIDERS: ADMIT Internal Medicine; ATTEND Internal Medicine
DX: K85.20 Alcohol induced acute pancreatitis without necrosis or infection (principal); K86.0 Alcohol-induced chronic pancreatitis; Y90.7 Blood alcohol level of 200-239 mg/100 ml; E86.9 Volume depletion, unspecified; F10.229 Alcohol dependence with intoxication, unspecified; K70.10 Alcoholic hepatitis without ascites; E11.9 Type 2 diabetes mellitus without complications; I10 Essential (primary) hypertension; G25.2 Other specified forms of tremor; K21.9 Gastro-esophageal reflux disease without esophagitis; K27.9 Peptic ulcer, site unspecified, unspecified as acute or chronic, without hemorrhage or perforation; Z72.0 Tobacco use
CPT/HCPCS: 96374; 97161-GP; 97165-GO; G0480; J1170; J1650; J1815; J2060; J2405; J3411

== ENCOUNTER 2018-10-23 21:37 | Inpatient (IN) | payer OTHER | END 2018-10-30 11:18 | disposition home or self-care (01) | LOC: F1N 10-24 04:33 ==